=== PATIENT | male | born 1960 | race Two or more races ===

== ENCOUNTER → 2016-08-08 | Outpatient (CLI) | payer BC, OTHER ==
[~2016-08-08] MED LIST: CARV6.2551 OR; LEVO25TA6 OR; METF-312 OR; OLME40TA30 OR
[2016-08-08 09:00] VITALS: BP 155/99
[2016-08-08 10:00] VITALS: BP 149/95
== END | disposition home or self-care (01) ==
LOC: CHF HDHVI 10:39
PROVIDERS: ATTEND Internal Medicine Cardiovascular Disease
DX: C22.9 Malignant neoplasm of liver, not specified as primary or secondary (principal)
CPT/HCPCS: G0463

== ENCOUNTER 2016-10-27 15:51 | Emergency (ER) | payer BC ==
[~2016-10-27] VITALS: Ht 175.3 cm; Wt 113.4 kg
[~2016-10-27 15:51] MED LIST changes: -METF-312 OR; +METF-370 OR
[2016-10-27] MEDS ORDERED: SODIUM CHLORIDE 0.9% 1,000 ML IVB ONE (16:35)
[2016-10-27 16:49] VITALS: BP 122/75
[2016-10-27 17:06] LABS: Basophils # (auto) 0 uL; Basophils % (auto) 0.2 % (0.0-2.0); Eosinophils # (auto) 0 uL; Eosinophils % (auto) 0.7 % (0.0-7.0); Hematocrit 42.4 % (41.0-53.0); Hemoglobin 14.7 g/dL (13.5-17.5); Lymphocytes # (auto) 0.8 uL; Lymphocytes % (auto) 12.4 % (10.0-50.0); Mean Corpuscular Hemoglobin 32.2 pg (28.0-32.0); Mean Corpuscular Hgb Conc. 34.7 g/dL (32.0-36.0); Mean Corpuscular Volume 92.6 fL (80.0-100.0); Mean Platelet Volume 9.8 fL (7.4-10.4); Monocytes # (auto) 0.4 uL; Monocytes % (auto) 6.2 % (0.0-12.0); Neutrophils # (auto) 5.4 uL; Neutrophils % (auto) 80.5 % (37.0-80.0); Platelet Count (auto) 86 10^3/uL (140-450); Red Cell Distribution Width 14.1 % (11.6-16.0); White Blood Cell 6.8 10^3/uL (4.4-10.8)
[2016-10-27 17:22] LABS: INR 1.15 (0.9-1.15); Partial Thromboplastin Time 23.8 sec (22.64-33.71)
[2016-10-27 17:23] LABS: Prothrombin Time 12.6 sec (9.37-12.3)
[2016-10-27 17:36] LABS: Alkaline Phosphatase 79 U/L (45-117); Anion Gap 11 (5-15); Aspartate Aminotransferase 25 U/L (15-37); BUN/Creatinine Ratio 13.7; Bilirubin, Total 1.7 mg/dL (0.2-1.0); Blood Urea Nitrogen 17 mg/dL (7-18); Calcium 9.2 mg/dL (8.5-10.1); Carbon Dioxide 23 mmol/L (21-32); Chloride 109 mmol/L (98-107); GFR African American 77 mL/min; GFR Non-African American 64 mL/min; Glucose 129 mg/dL (74-106); Potassium 3.7 mmol/L (3.5-5.1); Sodium 143 mmol/L (136-145); Total Protein 7.3 g/dL (6.4-8.2)
[2016-10-27 17:53] LABS: Urine Bilirubin Negative (Negative); Urine Blood Negative /uL (Negative); Urine Color Yellow (Yellow); Urine Glucose Normal (Normal); Urine Hyaline Cast MOD /lpf (0 - 2); Urine Ketone Negative (Negative); Urine Mucus FEW (None Seen); Urine Nitrite Negative (Negative); Urine RBC <1 /hpf (0 - 3); Urine Squamous Epithelial Cell FEW /hpf (<5); Urine Urobilinogen Normal (Negative)
[2016-10-27 20:50] LABS: Platelet Estimate Decreased
== END 2016-10-27 18:56 | disposition home or self-care (01) ==
LOC: EDBD 15:51 → ER 15:58
DX: T67.5XXA Heat exhaustion, unspecified, initial encounter (principal); R55 Syncope and collapse; R53.1 Weakness; E11.9 Type 2 diabetes mellitus without complications; E78.5 Hyperlipidemia, unspecified; I10 Essential (primary) hypertension; E07.9 Disorder of thyroid, unspecified; R11.2 Nausea with vomiting, unspecified; R42 Dizziness and giddiness; Z79.899 Other long term (current) drug therapy; X30.XXXA Exposure to excessive natural heat, initial encounter; Y93.89 Activity, other specified; Y92.89 Other specified places as the place of occurrence of the external cause; Y99.8 Other external cause status
CPT/HCPCS: 36415; 71010; 80053; 81001; 82962; 83735; 84484; 85025; 85610; 85730; 93005; 94761; 96360; 99285; J7030

== ENCOUNTER → 2016-12-11 | Outpatient (CLI) | payer BC ==
[2016-12-11 16:40] LABS: Basophils # (auto) 0 uL; Basophils % (auto) 0.8 % (0.0-2.0); CONDITION Y; Eosinophils # (auto) 0.1 uL; Eosinophils % (auto) 2.8 % (0.0-7.0); Hematocrit 42.2 % (41.0-53.0); Hemoglobin 14.4 g/dL (13.5-17.5); Lymphocytes # (auto) 1.2 uL; Lymphocytes % (auto) 38.8 % (10.0-50.0); Mean Corpuscular Hemoglobin 32.4 pg (28.0-32.0); Mean Corpuscular Hgb Conc. 34.1 g/dL (32.0-36.0); Mean Corpuscular Volume 94.9 fL (80.0-100.0); Mean Platelet Volume 10.3 fL (7.4-10.4); Monocytes # (auto) 0.2 uL; Monocytes % (auto) 7.4 % (0.0-12.0); Neutrophils # (auto) 1.5 uL; Neutrophils % (auto) 50.2 % (37.0-80.0); Platelet Count (auto) 90 10^3/uL (140-450); Red Cell Distribution Width 14.8 % (11.6-16.0); White Blood Cell 3.1 10^3/uL (4.4-10.8)
[2016-12-11 16:52] LABS: INR 1.11 (0.9-1.15); Partial Thromboplastin Time 26.6 sec (22.64-33.71); Prothrombin Time 12.1 sec (9.37-12.3)
[2016-12-11 17:05] LABS: BUN/Creatinine Ratio 23.3; Bilirubin, Direct 0.3 mg/dL (0-0.2); Bilirubin, Total 1.2 mg/dL (0.2-1.0); Calcium 9.5 mg/dL (8.5-10.1); Potassium 4.2 mmol/L (3.5-5.1); Total Protein 8.1 g/dL (6.4-8.2)
== END | disposition home or self-care (01) ==
LOC: Rad HDHVI 10:28
PROVIDERS: ATTEND Internal Medicine Cardiovascular Disease
DX: Z01.818 Encounter for other preprocedural examination (principal); I51.7 Cardiomegaly; I10 Essential (primary) hypertension; I70.0 Atherosclerosis of aorta; E11.9 Type 2 diabetes mellitus without complications; E78.00 Pure hypercholesterolemia, unspecified; K74.1 Hepatic sclerosis; E03.9 Hypothyroidism, unspecified; D64.9 Anemia, unspecified; R79.1 Abnormal coagulation profile
CPT/HCPCS: 36415; 71020; 80048; 80061; 80076; 82105; 83036; 84439; 84443; 85025; 85610; 85730; G0463

== ENCOUNTER → 2017-09-01 | Outpatient (CLI) | payer BC ==
[2017-09-01 12:05] LABS: Basophils # (auto) 0 uL; Basophils % (auto) 0.7 % (0.0-2.0); Eosinophils # (auto) 0.1 uL; Eosinophils % (auto) 3.8 % (0.0-7.0); Hematocrit 44.7 % (41.0-53.0); Hemoglobin 15.1 g/dL (13.5-17.5); Lymphocytes # (auto) 1.3 uL; Lymphocytes % (auto) 42.1 % (10.0-50.0); Mean Corpuscular Hemoglobin 32.2 pg (28.0-32.0); Mean Corpuscular Hgb Conc. 33.8 g/dL (32.0-36.0); Mean Corpuscular Volume 95.4 fL (80.0-100.0); Monocytes # (auto) 0.2 uL; Monocytes % (auto) 7.6 % (0.0-12.0); Neutrophils # (auto) 1.4 uL; Neutrophils % (auto) 45.8 % (37.0-80.0); Nucleated Red Blood Cells % 0.2 %; Platelet Count (auto) 80 10^3/uL (140-450); Red Blood Cells 4.69 10^6/uL (4.5-5.90); Red Cell Distribution Width 13.6 % (11.8-14.3)
[2017-09-01 12:09] LABS: Urine Blood Negative /uL (Negative); Urine Specific Gravity 1.031 (1.001-1.035)
[2017-09-01 12:20] LABS: Albumin 4.1 g/dL (3.4-5.0); BUN/Creatinine Ratio 20.4; Bilirubin, Total 1.3 mg/dL (0.2-1.0); Calcium 8.5 mg/dL (8.5-10.1); Potassium 4.1 mmol/L (3.5-5.1); Total Protein 8.2 g/dL (6.4-8.2)
[2017-09-01 12:24] LABS: Free T4 (Free Thyroxine) 1.07 ng/dL (0.89-1.76); Prostate Specific Antigen 0.73 ng/mL (0.0-4.0)
== END | disposition home or self-care (01) ==
LOC: LAB 08:01
PROVIDERS: ATTEND Internal Medicine Cardiovascular Disease
DX: E78.5 Hyperlipidemia, unspecified (principal); D64.9 Anemia, unspecified; I10 Essential (primary) hypertension; E11.9 Type 2 diabetes mellitus without complications; E03.9 Hypothyroidism, unspecified; E55.9 Vitamin D deficiency, unspecified; R97.20 Elevated prostate specific antigen [PSA]; R53.81 Other malaise; D51.9 Vitamin B12 deficiency anemia, unspecified; N39.0 Urinary tract infection, site not specified
CPT/HCPCS: 36415; 80053; 80061; 81003; 82306; 82607; 83036; 84153; 84403; 84439; 84443; 85025

== ENCOUNTER → 2017-09-30 | Outpatient (CLI) | payer BC | END | disposition home or self-care (01) | LOC: Rad HDHVI 09:27 | PROVIDERS: ATTEND Internal Medicine | DX: I70.0 Atherosclerosis of aorta (principal); I10 Essential (primary) hypertension; E11.9 Type 2 diabetes mellitus without complications; E78.5 Hyperlipidemia, unspecified; E03.9 Hypothyroidism, unspecified | CPT/HCPCS: 71046 ==

== ENCOUNTER → 2017-10-31 | Outpatient (CLI) | payer BC ==
[2017-10-31 13:35] VITALS: BP 137/82
[2017-10-31 13:55] VITALS: BP 136/82
[2017-10-31 16:02] LABS: Basophils # (auto) 0 uL; Basophils % (auto) 0.7 % (0.0-2.0); Eosinophils # (auto) 0.1 uL; Eosinophils % (auto) 2.3 % (0.0-7.0); Hematocrit 42.4 % (41.0-53.0); Hemoglobin 14.6 g/dL (13.5-17.5); Lymphocytes # (auto) 1.2 uL; Lymphocytes % (auto) 34.7 % (10.0-50.0); Mean Corpuscular Hemoglobin 33.2 pg (28.0-32.0); Mean Corpuscular Hgb Conc. 34.4 g/dL (32.0-36.0); Mean Corpuscular Volume 96.5 fL (80.0-100.0); Monocytes # (auto) 0.3 uL; Neutrophils # (auto) 1.8 uL; Neutrophils % (auto) 53.3 % (37.0-80.0); Nucleated Red Blood Cells % 0.8 %; Red Blood Cells 4.39 10^6/uL (4.5-5.90); Red Cell Distribution Width 13.7 % (11.8-14.3); White Blood Cell 3.4 10^3/uL (4.4-10.8)
[2017-10-31 16:12] LABS: Albumin 3.6 g/dL (3.4-5.0); Calcium 8.6 mg/dL (8.5-10.1); Potassium 3.7 mmol/L (3.5-5.1)
[2017-10-31 16:27] LABS: Bilirubin, Total 1.3 mg/dL (0.2-1.0); Total Protein 7.2 g/dL (6.4-8.2)
[2017-10-31 16:28] LABS: INR 1.14 (0.9-1.15); Partial Thromboplastin Time 26.8 sec (23.78-33.04); Prothrombin Time 12.1 sec (9.27-12.13)
[2017-10-31 16:37] LABS: Platelet Count (auto) 72 10^3/uL (140-450)
== END | disposition home or self-care (01) ==
LOC: Rad HDHVI 13:07
PROVIDERS: ATTEND Internal Medicine Cardiovascular Disease
DX: Z01.818 Encounter for other preprocedural examination (principal); I10 Essential (primary) hypertension; E11.9 Type 2 diabetes mellitus without complications; E78.5 Hyperlipidemia, unspecified; E03.9 Hypothyroidism, unspecified
CPT/HCPCS: 36415; 80053; 85025; 85610; 85730; 93005; G0463

== ENCOUNTER → 2018-01-20 | Outpatient (CLI) | payer BC ==
[2018-01-20 15:49] LABS: Basophils # (auto) 0 uL; Basophils % (auto) 0.5 % (0.0-2.0); Eosinophils # (auto) 0.1 uL; Eosinophils % (auto) 3.4 % (0.0-7.0); Hematocrit 41.9 % (41.0-53.0); Hemoglobin 14.5 g/dL (13.5-17.5); Lymphocytes # (auto) 1.1 uL; Lymphocytes % (auto) 36.9 % (10.0-50.0); Mean Corpuscular Hemoglobin 32.9 pg (28.0-32.0); Mean Corpuscular Hgb Conc. 34.6 g/dL (32.0-36.0); Mean Corpuscular Volume 94.9 fL (80.0-100.0); Monocytes # (auto) 0.3 uL; Monocytes % (auto) 9.7 % (0.0-12.0); Neutrophils # (auto) 1.5 uL; Neutrophils % (auto) 49.5 % (37.0-80.0); Nucleated Red Blood Cells % 0.6 %; Platelet Count (auto) 67 10^3/uL (140-450); Red Blood Cells 4.41 10^6/uL (4.5-5.90); Red Cell Distribution Width 13.8 % (11.8-14.3); White Blood Cell 3.1 10^3/uL (4.4-10.8)
[2018-01-20 15:54] LABS: Urine Blood Negative /uL (Negative)
[2018-01-20 16:00] LABS: BUN/Creatinine Ratio 15.7; Calcium 8.8 mg/dL (8.5-10.1); Potassium 3.8 mmol/L (3.5-5.1)
== END | disposition home or self-care (01) ==
LOC: LAB 12:14
PROVIDERS: ATTEND Internal Medicine
DX: K57.30 Diverticulosis of large intestine without perforation or abscess without bleeding (principal); K80.20 Calculus of gallbladder without cholecystitis without obstruction; K44.9 Diaphragmatic hernia without obstruction or gangrene; K74.60 Unspecified cirrhosis of liver; N39.0 Urinary tract infection, site not specified; K82.8 Other specified diseases of gallbladder; I10 Essential (primary) hypertension; R74.8 Abnormal levels of other serum enzymes; D64.9 Anemia, unspecified; R16.1 Splenomegaly, not elsewhere classified
CPT/HCPCS: 36415; 74176; 80048; 81003; 82150; 83690; 85025; 87086

== ENCOUNTER → 2018-11-17 | Outpatient (CLI) | payer BC ==
[~2018-11-17] VITALS: Ht 175.3 cm; Wt 109.3 kg
[~2018-11-17] MED LIST changes: +ADENOSINE 90 MG/30 ML INJ IV ONE; -OLME40TA30 OR; +OLME40TA9 OR
== END | disposition home or self-care (01) ==
LOC: Rad HDHVI 09:29
PROVIDERS: ATTEND Internal Medicine Cardiovascular Disease
DX: I20.9 Angina pectoris, unspecified (principal); R42 Dizziness and giddiness; B18.2 Chronic viral hepatitis C; I10 Essential (primary) hypertension; Z94.4 Liver transplant status
CPT/HCPCS: 78452; 93005; 96374; 96375; A9500; J0153

== ENCOUNTER → 2018-12-30 | Outpatient (CLI) | payer BC ==
[~2018-12-30] MED LIST changes: -ADENOSINE 90 MG/30 ML INJ IV ONE
[2018-12-31 12:39] LABS: Urine Blood Negative /uL (Negative); Urine Specific Gravity 1.029 (1.001-1.035)
== END | disposition home or self-care (01) ==
LOC: LAB 15:52
PROVIDERS: ATTEND Internal Medicine
DX: N39.0 Urinary tract infection, site not specified (principal)
CPT/HCPCS: 81003

== ENCOUNTER → 2019-02-05 | Outpatient (CLI) | payer BC ==
[~2019-02-05] VITALS: Ht 30.5 cm; Wt 104.3 kg
[~2019-02-05] MED LIST changes: +CYANOCOBALAMIN (B-12) 1000 MCG/1 ML VIAL IM ONE; +CYANOCOBALAMIN (B-12) 1000 MCG/1 ML VIAL ONE; +FUROSEMIDE 40 MG/4 ML VIAL IV ONE; +FUROSEMIDE 40 MG/4 ML VIAL ONE; +MAGNESIUM OXIDE 400 MG TAB ONE; +POTASSIUM CHL 10 Meq TABLET PO ONE
[2019-02-05 12:46] VITALS: BP 149/84
--- NOTE | 2019-02-05 12:50 | NUR ---
PATIENT CAME IN S/P HOSPITALIZATION, PATIENT DC'D FROM [facility] YESTERDAY. PATIENT STATES HE IS TIRED AND HIS LEGS AND FEET ARE SWOLLEN. IV STARTED IN LW 22G, BLOOD DRAWN AT TIME OF IV START AND SENT TO LAB STAT.
--- NOTE | 2019-02-05 13:30 | NUR ---
PATIENT EDUCATED ON LOW SODIUM DIET AND THE IMPORTANCE OF WATCHING SALT INTAKE. WRITTEN INFORMATION ON 2GM SODIUM DIET AND CONDIMENTS WITH HIGH SODIUM CONTENTS GIVEN TO PATIENT. PATIENT VERBALIZED UNDERSTANDING.
[2019-02-05 13:38] LABS: Basophils # (auto) 0.1 uL; Basophils % (auto) 0.5 % (0.0-2.0); Eosinophils # (auto) 0.1 uL; Eosinophils % (auto) 0.6 % (0.0-7.0); Hematocrit 34.3 % (41.0-53.0); Hemoglobin 11.7 g/dL (13.5-17.5); Lymphocytes # (auto) 1.2 uL; Lymphocytes % (auto) 9.8 % (10.0-50.0); Mean Corpuscular Hemoglobin 33.2 pg (28.0-32.0); Mean Corpuscular Hgb Conc. 34.3 g/dL (32.0-36.0); Monocytes # (auto) 0.7 uL; Monocytes % (auto) 5.9 % (0.0-12.0); Neutrophils % (auto) 83.2 % (37.0-80.0); Platelet Count (auto) 246 10^3/uL (140-450); Red Blood Cells 3.53 10^6/uL (4.5-5.90); Red Cell Distribution Width 13.2 % (11.8-14.3)
[2019-02-05 14:24] LABS: Anion Gap 8 (5-15); BUN/Creatinine Ratio 20.5; Blood Urea Nitrogen 15 mg/dL (7-18); Carbon Dioxide 23 mmol/L (21-32); Chloride 106 mmol/L (98-107); GFR African American 141 mL/min; GFR Non-African American 117 mL/min; Glucose 235 mg/dL (74-106); Potassium 3.7 mmol/L (3.5-5.1); Sodium 137 mmol/L (136-145)
[2019-02-05 14:25] LABS: Alanine Aminotransferase 113 U/L (16-61); Albumin 2.3 g/dL (3.4-5.0); Alkaline Phosphatase 138 U/L (45-117); Aspartate Aminotransferase 66 U/L (15-37); Bilirubin, Total 0.9 mg/dL (0.2-1.0); Calcium 7.8 mg/dL (8.5-10.1)
[2019-02-05 14:26] LABS: Magnesium 1.8 mg/dL (1.6-2.6)
[2019-02-05] MEDS: MAGNESIUM OXIDE 400 MG TAB PO ONE ×2 (14:40→14:45)
[2019-02-05 14:50] VITALS: BP 165/89
--- NOTE | 2019-02-05 14:50 | NUR ---
[facility] Discharge Instructions See e-MAR for any mediations given with this visit. Patient education given on disease process. Patient verbalized understanding. Previous labs reviewed. Patient discharged in stable condition with after care instructions and follow up appointment. NOTE LASIX IVP ADMIN BY [facility]IXA VO B12 IM R DELTOID ADMIN BY AIXA VO POTASSIUM PO AND MAG-OX PO ADMIN BY AIXA VO
== END | disposition home or self-care (01) ==
LOC: CHF HDHVI 12:52
PROVIDERS: ATTEND Internal Medicine Cardiovascular Disease
DX: I50.23 Acute on chronic systolic (congestive) heart failure (principal); D64.9 Anemia, unspecified; E83.40 Disorders of magnesium metabolism, unspecified; R60.9 Edema, unspecified; R53.83 Other fatigue; E83.42 Hypomagnesemia
CPT/HCPCS: 36415; 80053; 83735; 83880; 85025; 96372; 96374; G0463; J1940; J3420

== ENCOUNTER 2023-01-30 19:31 | Emergency (ER) | payer BC ==
[~2023-01-30] VITALS: Ht 175.3 cm; Wt 104.4 kg
[~2023-01-30 19:31] MED LIST changes: -CYANOCOBALAMIN (B-12) 1000 MCG/1 ML VIAL IM ONE; -CYANOCOBALAMIN (B-12) 1000 MCG/1 ML VIAL ONE; -FUROSEMIDE 40 MG/4 ML VIAL IV ONE; -FUROSEMIDE 40 MG/4 ML VIAL ONE; -MAGNESIUM OXIDE 400 MG TAB ONE; -POTASSIUM CHL 10 Meq TABLET PO ONE
[2023-01-30 21:56] LABS: Alanine Aminotransferase 25 U/L (7-40); Albumin 4.3 g/dL (3.2-4.8); Alkaline Phosphatase 69 U/L (46-116); Anion Gap 6.6 (5-15); Aspartate Aminotransferase 17 U/L (13-40); BUN/Creatinine Ratio 16.3 (10.0-20.0); Blood Urea Nitrogen 17 mg/dL (9-23); Calcium 9.6 mg/dL (8.7-10.4); Carbon Dioxide 24.4 mmol/L (20-30); Chloride 107 mmol/L (98-107); Glucose 174 mg/dL (74-106); Potassium 4.3 mmol/L (3.5-5.1); Sodium 138 mmol/L (136-145)
[2023-01-30 21:57] LABS: Bilirubin, Total 0.4 mg/dL (0.2-1.0); Total Protein 6.8 g/dL (5.7-8.2)
[2023-01-30 21:59] LABS: Basophils # (auto) 0 10 ^3/uL (0-0.2); Basophils % (auto) 0.5 % (0.0-2.0); Eosinophils # (auto) 0.1 10 ^3/uL (0-0.8); Eosinophils % (auto) 1.4 % (0.0-7.0); Hematocrit 39.5 % (41.0-53.0); Hemoglobin 13.5 g/dL (13.5-17.5); Lymphocytes # (auto) 2.8 10 ^3/uL (0.4-5.4); Lymphocytes % (auto) 37.1 % (10.0-50.0); Mean Corpuscular Hemoglobin 32.1 pg (28.0-32.0); Mean Corpuscular Hgb Conc. 34.2 g/dL (32.0-36.0); Mean Corpuscular Volume 93.7 fL (80.0-100.0); Monocytes # (auto) 0.4 10 ^3/uL (0-1.3); Monocytes % (auto) 5.6 % (0.0-12.0); Neutrophils # (auto) 4.2 10 ^3/uL (1.6-8.6); Neutrophils % (auto) 55.4 % (37.0-80.0); Nucleated Red Blood Cells % 0.1 %; Red Blood Cells 4.22 10^6/uL (4.5-5.90); Red Cell Distribution Width 12.7 % (11.8-14.3); White Blood Cell 7.5 10^3/uL (4.4-10.8)
[2023-01-30 22:27] LABS: INR 1.09 (0.9-1.15); Partial Thromboplastin Time 26.2 SEC (24.5-34.5); Prothrombin Time 11.4 sec (9.3-11.8)
[2023-01-30 22:36] VITALS: BP 130/74; PULSE 61; RESP 18; TEMP 98.1; O2SAT 98
== END 2023-01-30 22:37 | disposition home or self-care (01) ==
LOC: ER 19:35
DX: R25.2 Cramp and spasm (principal); E78.5 Hyperlipidemia, unspecified; F41.9 Anxiety disorder, unspecified; Z86.718 Personal history of other venous thrombosis and embolism
CPT/HCPCS: 36415; 71045; 80053; 83735; 83880; 84484; 85025; 85610; 85730; 93971

== ENCOUNTER 2024-07-28 13:31 | Inpatient (IN) | payer BC, MEDICARE ==
[~2024-07-28] VITALS: Ht 172.7 cm; Wt 113.0 kg
--- NOTE | 2024-07-28 13:44 | ED.PDOC ---
History of Present Illness HPI Comments 63-year-old male presents with a chief complaint of generalized weakness and right-sided numbness. Patient reports that he has been feeling weak and also numb in his arm and face on the right side since Friday. Patient denies any difficulty speaking, walking, or extremity strength. Patient was given 1 bolus by EMS and had a blood sugar reading of 352 per EMS. No other symptoms or modifying factors present at this time. Chief Complaint: General Weakness Time Seen by MD: 13:26 Reviewed Notes: Medications, Allergies Allergies: Coded Allergies: NO KNOWN ALLERGIES (Unverified , 03/02/12) Home Meds Reported Medications Carvedilol (Carvedilol) 6.25 Mg Tab, 6.25 MG OR BID 03/02/12 Olmesartan Medoxomil-Hydrochlo (Benicar Hct) 1 Tab Tab, 1 TAB OR DAILY 03/02/12 Levothyroxine Sodium (Levothyroxine Sodium) 25 Mcg Tab, 25 MCG OR DAILY 03/02/12 Metformin Hydrochloride (Metformin Hcl) 500 Mg Tab, 500 MG OR BID 03/02/12 Information Source: Patient, Emergency Med Personnel Mode of Arrival: EMS Severity: Moderate Timing: Days Duration: Since onset Prehospital treatment: Accucheck, IVF Past Medical History PAST MEDICAL HISTORY: Cancer, DM, High Lipids, HTN, Liver, Thyroid Surgical History: Hernia Repair Social History Smoker: Non-Smoker Alcohol: Denies ETOH Use Drugs: Denies Drug Use Lives In: Home Constitutional: reports: weakness; denies: chills, diaphoresis, fatigue, fever, malaise, sweats, others EENTM: denies: blurred vision, double vision, ear bleeding, ear discharge, ear drainage, ear pain, ear ringing, eye pain, eye redness, hearing loss, mouth pain, mouth swelling, nasal discharge, nose bleeding, nose congestion, nose pain, photophobia, tearing, throat pain, throat swelling, voice changes, others Respiratory: denies: cough, hemoptysis, orthopnea, SOB at rest, shortness of breath, SOB with excertion, stridor, wheezing, others Cardiovascular: denies: chest pain, dizzy spells, diaphoresis, Dyspnea on exertion, edema, irregular heart beat, left arm pain, lightheadedness, palpitations, PND, syncope, others Gastrointestinal: denies: abdomen distended, abdominal pain, blood streaked bowels, constipated, diarrhea, dysphagia, difficulty swallowing, hematemesis, melena, nausea, poor appetite, poor fluid intake, rectal bleeding, rectal pain, vomiting, others Genitourinary: denies: burning, dysuria, flank pain, frequency, hematuria, incontinence, penile discharge, penile sore, pain, testicle pain, testicle swelling, urgency, others Neurological: reports: right sided numbness; denies: dizziness, fainting, headache, left sided numbness, left sided weakness, numbness, paresthesia, pre- existing deficit, right sided weakness, seizure, speech problems, tingling, tremors, weakness, others Musculoskeletal: denies: back pain, gout, joint pain, joint swelling, muscle pain, muscle stiffness, neck pain, others Integumetry: denies: bruises, change in color, change in hair/nails, dryness, laceration, lesions, lumps, rash, wounds, others Allergic/Immunocompromised: denies: Difficulty Healing, Frequent Infections, Hives, Itching, others Hematologic/Lymphatic: denies: anemia, blood clots, easy bleeding, easy bruising, swollen glands, others Endocrine: denies: excessive hunger, excessive sweating, excessive thirst, excessive urination, flushing, intolerance to cold, intolerance to heat, unexplained weight gain, unexplained weight loss, others Psychiatric: denies: anxiety, bipolar disorder, depression, hopeless, panic disorder, schizophrenia, sleepless, suicidal, others All Other Systems: Reviewed and Negative Physical Exam General Appearance: Moderate Distress HEENT: Normal ENT Inspection, Pharynx Normal, TMs Normal Neck: Full Range of Motion, Non-Tender, Normal, Normal Inspection Respiratory: Chest Non-Tender, Lungs Clear, No Accessory Muscle Use, No Respiratory Distress, Normal Breath Sounds Cardiovascular: Bradycardia, No Edema, No JVD, No Murmur, No Gallop Breast Exam: Deferred Gastrointestinal: No Organomegaly, Non Tender, No Pulsatile Mass, Normal Bowel Sounds, Soft Genitalia: Deferred Pelvic: Deferred Rectal: Deferred Extremities: No calf tenderness, Normal capillary refill, Normal inspection, Normal range of motion, Non-tender, No pedal edema Musculoskeletal : Apperance: Normal Neurologic: 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 Was a procedure done?: No EKG EKG : Pulse Rate (adult): 56 [place]: Normal Cardiac Rhythm: NSR Block: None Hypertrophy: None ST: Normal Differential Dx Considerations may include: Generalized weakness, dehydration, sepsis X-Ray, Labs, Meds, VS Vital Signs Date Time Temp Pulse Resp B/P (MAP) Pulse Ox O2 Delivery O2 Flow Rate FiO2 07/28/24 13:43 56 07/28/24 13:39 97.7 55 14 140/81 (100) 96 Lab Test 07/28/24 14:11 Range/Units White Blood Count 4.9 4.4-10.8 10^3/uL Red Blood Count 4.34 L 4.5-5.90 10^6/uL Hemoglobin 13.8 13.5-17.5 g/dL Hematocrit 39.8 L 41.0-53.0 % Mean Corpuscular Volume 91.7 80.0-100.0 fL Mean Corpuscular Hemoglobin 31.9 28.0-32.0 pg Mean Corpuscular Hemoglobin Concent 34.8 32.0-36.0 g/dL Red Cell Distribution Width 12.8 11.8-14.3 % Platelet Count 114 L 140-450 10^3/uL Mean Platelet Volume 9.1 6.9-10.8 fL Neutrophils (%) (Auto) 51.9 37.0-80.0 % Lymphocytes (%) (Auto) 38.4 10.0-50.0 % Monocytes (%) (Auto) 7.3 0.0-12.0 % Eosinophils (%) (Auto) 1.6 0.0-7.0 % Basophils (%) (Auto) 0.8 0.0-2.0 % Neutrophils # (Auto) 2.6 1.6-8.6 10 ^3/uL Lymphocytes # (Auto) 1.9 0.4-5.4 10 ^3/uL Monocytes # (Auto) 0.4 0-1.3 10 ^3/uL Eosinophils # (Auto) 0.1 0-0.8 10 ^3/uL Basophils # (Auto) 0 0-0.2 10 ^3/uL Nucleated Red Blood Cells 0.1 % Prothrombin Time 11.1 9.3-11.8 sec Prothrombin Time INR 1.05 0.9-1.15 Activated Partial Thromboplast Time 25.5 24.5-34.5 SEC Sodium Level 137 136-145 mmol/L Potassium Level 4.5 3.5-5.1 mmol/L Chloride Level 104 98-107 mmol/L Carbon Dioxide Level 28 20-31 mmol/L Anion Gap 5 5-15 Blood Urea Nitrogen 27 H 9-23 mg/dL Creatinine 1.03 0.700-1.30 mg/dL Glomerular Filtration Rate Calc 81 >90 mL/min BUN/Creatinine Ratio 26.2 H 10.0-20.0 Serum Glucose 283 H 74-106 mg/dL Calcium Level 10.0 8.7-10.4 mg/dL Troponin I High Sensitivity 6 </=54 ng/L The patient's CBC is within normal limits The chemistry panel is within normal limits The patient was glucose is elevated at 283 The troponin level is negative The chest x-ray shows: IMPRESSION: The chest x-ray shows increased pulmonary vascular congestion HS:Y The CT scan of the head is negative The patient was being admitted at this time The patient will be evaluated by the hospitalist Images Reviewed?: Images reviewed and evaluated by me Time of 1ST Reevaluation: 13:56 Reevaluation 1ST: Unchanged Patient Education/Counseling: Diagnosis, Treatment, Prognosis Family Education/Counseling: Diagnosis, Treatment, Prognosis Departure 1 Departure Time of Disposition: 16:27 Impression: Primary Impression: Generalized weakness Additional Impressions: Pulmonary vascular congestion Symptomatic bradycardia Disposition: ADMITTED INPATIENT Admit to: Tele Condition: Fair Critical Care Note Critical Care Time?: No Stability Stability form required: Yes Unstable for transfer: Telemetry monitoring (Telemetry monitoring required), ED Physician Assesment (Clinical assesment) Heart Score Heart Score: Heart Score Response (Comments) Value History Moderate Suspicious 1 EKG Normal 0 Age 45-64 1 Risk Factors >3 or Hx ASHD 2 Troponin Normal limit 0 Total 4 I personally scribed for MICAELA VINCENT MD ([email or web address]) on 07/28/24 at 13:43. Electronically submitted by Jeovany Cooper ([email or web address]). MICAELA VINCENT MD Jul 28, 2024 13:43
--- NOTE | 2024-07-28 14:19 | DVH ---
CHEST RADIOGRAPH Indication: cp Technique: Single frontal view of the chest was obtained Comparison: XY CHEST PORTABLE on DOS: 01/30/23 FINDINGS: Lines and Tubes: None Lungs: No focal consolidation. Interstitial prominence Pleura: No effusion. No pneumothorax. Cardiomediastinal contours: Mild cardiomegaly Bones: No acute osseous abnormality. IMPRESSION: Mild pulmonary vascular congestion.
[2024-07-28 14:26] LABS: Basophils # (auto) 0 10 ^3/uL (0-0.2); Basophils % (auto) 0.8 % (0.0-2.0); Eosinophils # (auto) 0.1 10 ^3/uL (0-0.8); Eosinophils % (auto) 1.6 % (0.0-7.0); Hematocrit 39.8 % (41.0-53.0); Hemoglobin 13.8 g/dL (13.5-17.5); Lymphocytes # (auto) 1.9 10 ^3/uL (0.4-5.4); Lymphocytes % (auto) 38.4 % (10.0-50.0); Mean Corpuscular Hemoglobin 31.9 pg (28.0-32.0); Mean Corpuscular Hgb Conc. 34.8 g/dL (32.0-36.0); Mean Corpuscular Volume 91.7 fL (80.0-100.0); Monocytes # (auto) 0.4 10 ^3/uL (0-1.3); Monocytes % (auto) 7.3 % (0.0-12.0); Neutrophils # (auto) 2.6 10 ^3/uL (1.6-8.6); Neutrophils % (auto) 51.9 % (37.0-80.0); Nucleated Red Blood Cells % 0.1 %; Platelet Count (auto) 114 10^3/uL (140-450); Red Blood Cells 4.34 10^6/uL (4.5-5.90); Red Cell Distribution Width 12.8 % (11.8-14.3); White Blood Cell 4.9 10^3/uL (4.4-10.8)
--- NOTE | 2024-07-28 14:26 | DVH ---
EXAM: CT HEAD WITHOUT CONTRAST HISTORY: right arm numbness COMPARISON: None TECHNIQUE: Axial images of the head were obtained and reformatted in coronal and sagittal planes. All CT scans at this medical facility are performed using dose modulation techniques as appropriate t o a performed exam including the following: Automated exposure control was utilized; adjustment of th e MA and/or KV according to patient size; and use of iterative reconstruction technique. CT Dose: CTDI volume is 60 mGy. Dose-length product is 1198 mGy*cm FINDINGS: There is no evidence of acute intracranial hemorrhage, mass, mass effect midline shift. There is no h ydrocephalus or extra-axial fluid collection. There are mild chronic small-vessel ischemic changes i n the supratentorial white matter. Quiroz-white matter differentiation is maintained. The visualized paranasal sinuses and mastoid air cells are clear. The calvarium is intact. IMPRESSION: 1. No acute intracranial process. HS:Y
[2024-07-28 14:40] LABS: Chloride 104 mmol/L (98-107); Potassium 4.5 mmol/L (3.5-5.1); Sodium 137 mmol/L (136-145)
[2024-07-28 14:41] LABS: Anion Gap 5 (5-15); Carbon Dioxide 28 mmol/L (20-31); INR 1.05 (0.9-1.15); Partial Thromboplastin Time 25.5 SEC (24.5-34.5); Prothrombin Time 11.1 sec (9.3-11.8)
[2024-07-28 14:46] LABS: BUN/Creatinine Ratio 26.2 (10.0-20.0)
[2024-07-28 14:52] LABS: Blood Urea Nitrogen 27 mg/dL (9-23); Glucose 283 mg/dL (74-106)
[2024-07-28] MEDS ORDERED: MORPHINE SULFATE INJ 2 MG/ml SYRG IV PRN (22:00)
[2024-07-28] MEDS ORDERED: ACETAMINOPHEN 325 MG TAB PO PRN (22:00)
[2024-07-28 22:36] LABS: Alanine Aminotransferase 30 U/L (7-40); Albumin 4.4 g/dL (3.2-4.8); Alkaline Phosphatase 88 U/L (46-116); Anion Gap 6 (5-15); Aspartate Aminotransferase 21 U/L (13-40); BUN/Creatinine Ratio 19.5 (10.0-20.0); Blood Urea Nitrogen 22 mg/dL (9-23); Calcium 9.9 mg/dL (8.7-10.4); Carbon Dioxide 26 mmol/L (20-31); Chloride 106 mmol/L (98-107); Potassium 4.4 mmol/L (3.5-5.1); Sodium 138 mmol/L (136-145); Total Protein 6.9 g/dL (5.7-8.2)
[2024-07-28 22:37] LABS: Bilirubin, Total 0.5 mg/dL (0.2-1.0); INR 1.04 (0.9-1.15); Partial Thromboplastin Time 25.7 SEC (24.5-34.5)
[2024-07-28 22:40] LABS: Blood Alcohol < 3.0 mg/dL (<10); Glucose 376 mg/dL (74-106)
[2024-07-28 22:41] LABS: Lactic Acid w/Reflex 2.2 mmol/L (0.4-2.0)
[2024-07-28] MEDS ORDERED: DEXTROSE (50%) 50ML SYRG IV PRN (22:45)
[2024-07-28 22:50] LABS: Free T4 (Free Thyroxine) 1.16 ng/dL (0.89-1.76)
[2024-07-28 23:25] LABS: T3 Total 0.93 ng/mL (0.60-1.81)
[2024-07-28 23:34] LABS: Urine Bacteria None Seen /hpf (None Seen)
[2024-07-28] MEDS: SODIUM CHLOR 0.9% PF (SALINE LOCK) 10ML VIAL/SYR IV SCH (23:41)
[2024-07-28] MEDS: CARVEDILOL 12.5 MG TAB PO SCH (23:41)
[2024-07-28] MEDS: SODIUM CHLORIDE 0.9% 1,000 ML IV ONE (23:48)
[2024-07-28] MEDS: IOHEXOL 350 MG/ML 100ML IJ ONE (23:48)
[2024-07-28 23:56] LABS: Rapid Influenza A Negative (Negative); Rapid Influenza B Negative (Negative)
[2024-07-28 23:56] LABS: COVID19 ANTIGEN SOFIA FIA NEGATIVE (NEGATIVE)
--- NOTE | 2024-07-28 23:58 | ECG ---
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
[2024-07-29] VITALS (8 sets, daily range): BP systolic 139–160; BP diastolic 60–89; PULSE 51–60; RESP 15–18; TEMP 97.3–98; O2SAT 95–97
[2024-07-29] MEDS: InsuLIN REG 1unit/0.01ml Soln (100units/ml) SC SCH ×2 (00:08→21:58)
[2024-07-29 00:09] LABS: Amphetamine Screen, Urine Neg (NEGATIVE); Barbiturate Scree,Urine Neg (NEGATIVE); Benzodiazephine Screen, Urine Neg (NEGATIVE); Cannabinoid Screen, Urine Neg (NEGATIVE); Cocaine Screen, Urine Neg (NEGATIVE); Opiate Scree,Urine Neg (NEGATIVE); Phencyclidine Screen, Urine Neg (NEGATIVE)
[2024-07-29 00:11] LABS: LDL Cholesterol 81 mg/dL (< 100)
[2024-07-29 00:12] LABS: Cholesterol 146 mg/dL (< 200); HDL Cholesterol 42 mg/dL (40-59)
--- NOTE | 2024-07-29 00:16 | DVHHPRES ---
History of Present Illness Resident Creating Document: JERAD BREWER RESIDENT History of Present Illness Ravinder Portillo is a 63-year-old male with a PMH of HCV, liver cancer s/p transplant, type 2 DM, HLD, HTN, hypothyroidism presented to the ED with the chief complaints of right-sided numbness since Friday. Patient reported on Friday evening after work patient started having right-sided numbness like pins and needles sensation in right side of his face, upper and lower extremities which is mild initially but worsened as this progresses and affecting no hold right hand and right side of body. Patient also reported he has been having fatigue for past 2 weeks, intermittent shortness of breath and lightheadedness with light activity and admitted stress at work but denies weakness. On my assessment patient denies headache, chest pain, diarrhea, fall, head trauma, nausea, vomiting, abdominal pain, recent sick contacts and other associated symptoms. PMH: HCV f/b liver cancer s/p transplant 2015, type 2 DM (always more than 200), HLD, HTN, hypothyroidism PSH: Liver transplant in 2016, elbow repair, hernia repair Family history: Multiple TIA in father and lower cancer due to hepatitis-C in brother Personal history: Lives with family. Occasional alcohol use but denies smoking, and other drug abuse Home medications: Carvedilol 12.5 mg, levothyroxine 0.05 mg, benazepril 40 mg, rosuvastatin 10 mg, tacrolimus 1 mg, glyburide 5 mg, magnesium 483 mg Allergies: No known allergies Review of Systems Constitutional: No: Fever, Chills, Sweats, Weakness, Malaise, Other Eyes: No: Pain, Vision change, Conjunctivae inflammation, Eyelid inflammation, Other, Redness ENT: No: Ear pain, Ear discharge, Nose pain, Nose discharge, Nose congestion, Mouth pain, Mouth swelling, Throat pain, Throat swelling, Other Respiratory: No: Cough, Dry, Shortness of breath, SOB with excertion, Wheezing, Hemoptysis, Pleuritic Pain, Sputum, Wheezing, Other Cardiovascular: No: Chest Pain, Palpitations, Orthopnea, Paroxysmal Noc. Dyspnea, Edema, Lt Headedness, Other Gastrointestinal: No: Nausea, Vomiting, Abdominal Pain, Diarrhea, Constipation, Melena, Hematochezia, Other Genitourinary: No Dysuria, No Frequency, No Incontinence, No Hematuria, No Retention, No Other Musculoskeletal: No: other, neck pain, shoulder pain, arm pain, back pain, hand pain, leg pain, foot pain Skin: No: Rash, Lesions, Jaundice, Bruising, Other Neurological: Numbness (Right-sided body) Allergies: Coded Allergies: NO KNOWN ALLERGIES (Unverified , 03/02/12) Medications Current Medications Medications Dose Ordered Sig/Nilesh Route Start Time Stop Time Status Last Admin Dose Admin Sodium Chloride 10 ml Q8HR IV 07/28/24 22:00 07/28/24 23:41 10 ML Sodium Chloride 1,000 ml @ 60 mls/hr [id number] IV 07/28/24 22:00 Acetaminophen 650 mg Q6HP PRN PO 07/28/24 22:00 Morphine Sulfate 2 mg Q4HPRN PRN IV 07/28/24 22:00 Carvedilol 12.5 mg Q12HR PO 07/28/24 22:45 Levothyroxine Sodium 50 mcg QAM@0600 PO 07/29/24 06:00 Benazepril HCl 40 mg DAILY PO 07/29/24 10:00 Patient Own Medication 1 TID PO 07/29/24 06:00 UNV Diagnostic Test (Pha) 1 strip ACHS 07/29/24 07:00 Insulin Human Regular HS SC 07/29/24 22:00 Insulin Human Regular AC SC 07/28/24 22:45 07/29/24 00:08 9 UNITS Dextrose 50 ml UD PRN IV 07/28/24 22:45 Aspirin 81 mg DAILY PO 07/29/24 10:00 Clopidogrel Bisulfate 75 mg DAILY PO 07/29/24 10:00 Exam Vital Signs Vital Signs Date Time Temp Pulse Resp B/P (MAP) Pulse Ox O2 Delivery O2 Flow Rate FiO2 07/28/24 23:56 53 07/28/24 23:26 97.7 14 136/76 (96) 96 97.7 Exam General Appearance: Alert, Oriented X3, Cooperative, Not in acute distress HEENT: Atraumatic, Mucous membranes moist/pink Respiratory: Clear to auscultation, Normal air movement, No added sounds Cardiovascular: Regular rate, Normal S1, Normal S2, No murmurs Abdominal: Active bowel sounds, Soft, no distention, no tenderness Extremities: No edema, Normal pulses, No tenderness/swelling Skin: No Significant rash, except past surgical scars Neuro: Normal speech, sensory deficits on the right side of body and face decreased pain perception on right side but no motor deficits. Psych/Mental Status: Mental status NL, Mood NL Nurse was there as sharperone during examination Labs/Xrays Labs Test 07/28/24 23:33 07/28/24 23:25 07/28/24 23:24 07/28/24 22:03 Range/Units Urine Opiates Screen Neg NEGATIVE Urine Fentanyl Screen Neg NEGATIVE Urine Barbiturates Screen Neg NEGATIVE Urine Phencyclidine Screen Neg NEGATIVE Urine Amphetamines Screen Neg NEGATIVE Urine Benzodiazepines Screen Neg NEGATIVE Urine Cocaine Screen Neg NEGATIVE Urine Cannabinoids Screen Neg NEGATIVE Influenza Type A Antigen Negative Negative Influenza Type B Antigen Negative Negative SARS-CoV-2 Antigen (Rapid) Negative NEGATIVE Prothrombin Time 11.0 9.3-11.8 sec Prothrombin Time INR 1.04 0.9-1.15 Activated Partial Thromboplast Time 25.7 24.5-34.5 SEC D-Dimer, Quantitative 0.58 H 0.0-0.49 mg/L FEU Sodium Level 138 136-145 mmol/L Potassium Level 4.4 3.5-5.1 mmol/L Chloride Level 106 98-107 mmol/L Carbon Dioxide Level 26 20-31 mmol/L Anion Gap 6 5-15 Blood Urea Nitrogen 22 9-23 mg/dL Creatinine 1.13 0.700-1.30 mg/dL Glomerular Filtration Rate Calc 73 >90 mL/min BUN/Creatinine Ratio 19.5 10.0-20.0 Serum Glucose 376 H 74-106 mg/dL Hemoglobin A1c 10.3 H <5.7 % A1C Lactic Acid Level 2.2 *H 0.4-2.0 mmol/L Calcium Level 9.9 8.7-10.4 mg/dL Magnesium Level 2.0 1.6-2.6 mg/dL Total Bilirubin 0.5 0.2-1.0 mg/dL Aspartate Amino Transferase (AST) 21 13-40 U/L Alanine Aminotransferase (ALT) 30 7-40 U/L Alkaline Phosphatase 88 46-116 U/L B-Type Natriuretic Peptide 19.50 0-100 pg/mL Total Protein 6.9 5.7-8.2 g/dL Albumin 4.4 3.2-4.8 g/dL Thyroid Stimulating Hormone (TSH) 1.48 0.55-4.78 uIU/mL Free Thyroxine (T4) Calculated 1.16 0.89-1.76 ng/dL Total Triiodothyronine (TT3) 0.93 0.60-1.81 ng/mL Plasma/Serum Blood Alcohol < 3.0 <10 mg/dL Test 07/28/24 14:11 Range/Units White Blood Count 4.9 4.4-10.8 10^3/uL Red Blood Count 4.34 L 4.5-5.90 10^6/uL Hemoglobin 13.8 13.5-17.5 g/dL Hematocrit 39.8 L 41.0-53.0 % Mean Corpuscular Volume 91.7 80.0-100.0 fL Mean Corpuscular Hemoglobin 31.9 28.0-32.0 pg Mean Corpuscular Hemoglobin Concent 34.8 32.0-36.0 g/dL Red Cell Distribution Width 12.8 11.8-14.3 % Platelet Count 114 L 140-450 10^3/uL Mean Platelet Volume 9.1 6.9-10.8 fL Neutrophils (%) (Auto) 51.9 37.0-80.0 % Lymphocytes (%) (Auto) 38.4 10.0-50.0 % Monocytes (%) (Auto) 7.3 0.0-12.0 % Eosinophils (%) (Auto) 1.6 0.0-7.0 % Basophils (%) (Auto) 0.8 0.0-2.0 % Neutrophils # (Auto) 2.6 1.6-8.6 10 ^3/uL Lymphocytes # (Auto) 1.9 0.4-5.4 10 ^3/uL Monocytes # (Auto) 0.4 0-1.3 10 ^3/uL Eosinophils # (Auto) 0.1 0-0.8 10 ^3/uL Basophils # (Auto) 0 0-0.2 10 ^3/uL Nucleated Red Blood Cells 0.1 % Troponin I High Sensitivity 6 </=54 ng/L Assessment/Plan Assessment/Plan # Rule out acute CVA # Right-sided paresthesia -head CT showed no acute changes -ABCD2 score 5 -consulted neurology -ordered CT angio neck and MRI brain -aspirin & clopidogrel loading dose followed by maintenance dose # uncontrolled HTN -continuously monitor -resume home meds -consulted Dr. Orellana # uncontrolled type 2 DM -pending HbA1c -Accu-Cheks and ISS # hypothyroidism -levothyroxine 50 mcg # thrombocytopenia -monitor lab for now Protonix SCDs for now Cardiac diet Goals of care discussed with the patient for more than 27 minutes: Full code status Case discussed with Dr. Castro, patient and RN Plan discussed with: Patient My Orders Orders - JERAD BREWER RESIDENT Procedure Category Date Status Time Admit ADMIT 07/28/24 Transmitted 21:49 Allergies ANGELICA 07/28/24 In Process 21:49 Code Status CODE 07/28/24 Transmitted 21:49 Sodium Chloride Lock PHA 07/28/24 In Process (Saline Lock Ns) 22:00 Sodium Chloride 0.9% PHA 07/28/24 In Process 22:00 Complete Blood Count LAB 07/29/24 Logged 04:00 Comprehensive LAB 07/29/24 Logged Metabolic Panel 04:00 Cardiac DIET 07/29/24 Transmitted Diet-2gna,Lofat,Lochol Breakfast Condition: Stable ANGELICA 07/28/24 In Process 21:49 Acetaminophen Tablet PHA 07/28/24 In Process (Tylenol Tablet) 22:00 Morphine Sulfate PHA 07/28/24 In Process Injection 22:00 Sequential ANGELICA 07/28/24 In Process Compression Device Urinalysis LAB 07/28/24 In Process 21:49 * Neurology Consult CONS 07/28/24 Transmitted 22:03 *Consult Dr. Orellana CONS 07/28/24 Transmitted Arunasalam 22:03 Carvedilol Tablet PHA 07/28/24 In Process (Coreg Tablet) 22:45 Benazepril Hcl Tablet PHA 07/29/24 In Process (Lotensin Tablet) 10:00 Patients Own PHA 07/29/24 Pending Medication 06:00 Levothyroxine Tablet PHA 07/29/24 In Process (Synthroid Tablet) 06:00 Glucose Blood PHA 07/29/24 In Process (Accu-Chek Comfort 07:00 Insulin R (Human) PHA 07/29/24 In Process (Insulin R) 22:00 Insulin R (Human) PHA 07/28/24 In Process (Insulin R) 22:45 Dextrose 50% Syringe PHA 07/28/24 In Process 22:45 Electrocardigram EKG 07/28/24 Logged 22:49 Angio Head/Neck CT 07/28/24 Taken 22:58 Lipid Panel LAB 07/28/24 In Process 23:43 Sodium Chloride 0.9% PHA 07/28/24 In Process 23:45 Aspirin Tablet PHA 07/29/24 In Process 10:00 Clopidogrel Bisulfate PHA 07/29/24 In Process (Plavix) 10:00 Brain Head Wo Contrast MRI 07/28/24 Logged 23:48 Date of Service: Jul 28, 2024 Billing Provider: EVAN CASTRO MD Common Visit Codes: 50853-[id number] INP/OBS CARE (HIGH) Secondary Visit Codes: 50329-[id number] CARE PLAN 30 MINUTES JERAD BREWER RESIDENT Jul 29, 2024 00:16 EVAN CASTRO MD Jul 29, 2024 17:52
[2024-07-29 00:17] LABS: Urine Blood Negative /uL (Negative); Urine Budding Yeast OCCASIONAL /hpf (None Seen); Urine Clarity Clear (Clear); Urine Color Yellow (Yellow); Urine Protein, UAD Negative (Negative); Urine Squamous Epithelial Cell FEW /hpf (<5); Urine Urobilinogen Normal (Negative); Urine pH 5.5 (5.0-9.0)
[2024-07-29 00:18] LABS: Triglycerides 165 mg/dL (< 150)
--- NOTE | 2024-07-29 00:27 | DVH ---
INDICATION: r/o carotid stenosis COMPARISON: Noncontrast CT head 07/28/2024 TECHNIQUE: CTA head without and with intravenous contrast. CTA neck with intravenous contrast. 3D image postprocessing was performed on a dedicated workstation and images were used for interpretation and reporting. Radiation Dose Information: CT Dose: CTDI volume is mGy. Dose-length product is mGy*cm FINDINGS: CTA head: No abnormality is demonstrated in the intracranial ICAs, MCAs, and ACAs. Right A1 segment is congenit ally small. Mild plaque in intracranial vertebral arteries without stenosis. Left vertebral artery sl ightly dominant. No abnormality demonstrated in the basilar artery and left EDGERMAN. Kqkdkokl-us-dmeufd s tenosis in right P2/P3 segment. Visualized intracranial venous structures are grossly unremarkable. N o evidence of aneurysm or vascular malformation. CTA neck: Aortic arch and proximal great vessels are unremarkable. The left common, internal and external carotid arteries demonstrate no abnormality. The right common, internal and external carotid arteries demonstrate no abnormality. The cervical segments of the right and left vertebral arteries are normal. Left slightly dominant. Limited visualized lung apices are clear. Surrounding soft tissues and osseous structures are unrem arkable. IMPRESSION: No abnormality demonstrated in cervical carotid and vertebral arteries. [id number] stenosis in P2/P3 segment of right EDGERMAN. Otherwise unremarkable. All CT scans at this medical facility are performed using dose modulation techniques as appropriate t o a performed exam including the following: Automated exposure control was utilized; adjustment of th e MA and/or KV according to patient size; and use of iterative reconstruction technique.
[2024-07-29] MEDS: CLOPIDOGREL BISULFATE 75 MG TAB PO ONE (00:47)
[2024-07-29] MEDS: SODIUM CHLORIDE 0.9% 1,000 ML IV SCH (00:48)
[2024-07-29] MEDS: ASPirin 325 MG TAB PO ONE (00:48)
[2024-07-29] MEDS ORDERED: TACR1GRA PO (01:34)
[2024-07-29] MEDS ORDERED: ROSU10TA16 PO (01:34)
--- NOTE | 2024-07-29 03:29 | ECG ---
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
[2024-07-29 05:24] LABS: Basophils # (auto) 0.1 10 ^3/uL (0-0.2); Basophils % (auto) 1.4 % (0.0-2.0); Eosinophils # (auto) 0.1 10 ^3/uL (0-0.8); Eosinophils % (auto) 2.1 % (0.0-7.0); Hematocrit 40.8 % (41.0-53.0); Hemoglobin 13.9 g/dL (13.5-17.5); Lymphocytes # (auto) 2.1 10 ^3/uL (0.4-5.4); Lymphocytes % (auto) 48.3 % (10.0-50.0); Mean Corpuscular Hemoglobin 31.6 pg (28.0-32.0); Mean Corpuscular Hgb Conc. 34.1 g/dL (32.0-36.0); Mean Corpuscular Volume 92.6 fL (80.0-100.0); Monocytes # (auto) 0.4 10 ^3/uL (0-1.3); Monocytes % (auto) 8.2 % (0.0-12.0); Neutrophils # (auto) 1.8 10 ^3/uL (1.6-8.6); Nucleated Red Blood Cells % 0.2 %; Platelet Count (auto) 115 10^3/uL (140-450); Red Cell Distribution Width 12.6 % (11.8-14.3); White Blood Cell 4.4 10^3/uL (4.4-10.8)
[2024-07-29 05:41] LABS: Alanine Aminotransferase 28 U/L (7-40); Albumin 4.2 g/dL (3.2-4.8); Alkaline Phosphatase 78 U/L (46-116); Anion Gap 7 (5-15); Aspartate Aminotransferase 18 U/L (13-40); BUN/Creatinine Ratio 19.5 (10.0-20.0); Blood Urea Nitrogen 17 mg/dL (9-23); Calcium 9.4 mg/dL (8.7-10.4); Carbon Dioxide 25 mmol/L (20-31); Chloride 107 mmol/L (98-107); Potassium 4.1 mmol/L (3.5-5.1); Sodium 139 mmol/L (136-145); Total Protein 6.5 g/dL (5.7-8.2)
[2024-07-29 05:42] LABS: Bilirubin, Total 0.4 mg/dL (0.2-1.0)
[2024-07-29 05:44] LABS: Glucose 232 mg/dL (74-106)
[2024-07-29] MEDS ORDERED: PATIENTS OWN MEDICATION PO SCH (06:00)
[2024-07-29] MEDS: ACCU-CHEK COMFORT CURVE STRIP VI SCH (06:23)
[2024-07-29] MEDS: LEVOTHYROXINE SODIUM 50 MCG TAB PO SCH (06:23)
[2024-07-29] MEDS: CLOPIDOGREL BISULFATE 75 MG TAB PO SCH ×2 (08:50→18:11)
[2024-07-29] MEDS: BENAZEPRIL HCL 10 MG TAB PO SCH (08:50)
[2024-07-29] MEDS: ASPirin 81 mg TAB PO SCH (09:02)
[2024-07-29] MEDS ORDERED: TACR1CAP4 PO (09:16)
--- NOTE | 2024-07-29 11:07 | DVHPN2 ---
Progress Note - Dictate Date Seen: Jul 28, 2024 Medical Necessity Reason Pt with a Central, PICC or Fol: No Subjective PT WELL KNOWN TO ME HX OF LIVER CA S/P RESECTION S/P LIVER TRANSPLANT HX OF HEP C/ ETIOLOGY FOR LIVER CA NOW WITH RIGHT SIDED WEAKNESS CT OF HEAD NEGATIVE CTA NECK RIGHT ICA STENOSIS vital signs Vital Sign Date Time Temp Pulse Resp B/P (MAP) Pulse Ox O2 Delivery O2 Flow Rate FiO2 07/29/24 09:01 60 148/81 07/29/24 07:49 97.9 18 96 97.9 07/29/24 00:36 Room Air* 0 21 Total Intake and Output 07/28/24 07/28/24 07/29/24 15:00 23:00 07:00 Intake Total 1000 ml Balance 1000 ml medications Current Medications Medications Dose Ordered Sig/Nilesh Route Start Time Stop Time Status Last Admin Dose Admin Sodium Chloride 10 ml Q8HR IV 07/28/24 22:00 07/29/24 06:23 10 ML Sodium Chloride 1,000 ml @ 60 mls/hr [id number] IV 07/28/24 22:00 07/29/24 00:48 60 MLS/HR Acetaminophen 650 mg Q6HP PRN PO 07/28/24 22:00 Morphine Sulfate 2 mg Q4HPRN PRN IV 07/28/24 22:00 Carvedilol 12.5 mg Q12HR PO 07/28/24 22:45 07/29/24 09:01 12.5 MG Levothyroxine Sodium 50 mcg QAM@0600 PO 07/29/24 06:00 07/29/24 06:23 50 MCG Benazepril HCl 40 mg DAILY PO 07/29/24 10:00 Diagnostic Test (Pha) 1 strip ACHS 07/29/24 07:00 07/29/24 06:23 1 STRIP Insulin Human Regular HS SC 07/29/24 22:00 Insulin Human Regular AC SC 07/28/24 22:45 07/29/24 06:25 6 UNITS Dextrose 50 ml UD PRN IV 07/28/24 22:45 Aspirin 81 mg DAILY PO 07/29/24 10:00 07/29/24 09:02 81 MG Clopidogrel Bisulfate 75 mg DAILY PO 07/29/24 10:00 Tacrolimus 1 mg QPM PO 07/29/24 18:00 Tacrolimus 2 mg QAM PO 07/30/24 07:00 laboratory and microbiology Laboratory Tests 07/29/24 04:41 Test 07/29/24 04:41 Range/Units Serum Glucose 232 #H 74-106 mg/dL Problem List HX OF LIVER CA S/P RESECTION S/P LIVER TRANSPLANT HX OF HEP C/ ETIOLOGY FOR LIVER CA NOW WITH RIGHT SIDED WEAKNESS CT OF HEAD NEGATIVE CTA NECK RIGHT ICA STENOSIS Assessment/Plan CAROTID DOPPLER DAPT CONSIDER CAROTID ANGIO/ HELIUM ARC WELDER Plan discussed with: Patient Critical Care Time(min): 35 TANVI MCGEE MD Jul 29, 2024 11:07
[2024-07-29] MEDS: TACROLIMUS 1 MG CAP PO ONE (11:26)
--- NOTE | 2024-07-29 11:35 | DVH ---
EXAMINATION: MRI BRAIN HEAD WO CONTRAST INDICATION: R/o Acute CVA COMPARISON: CT scan of the head performed on 07/28/2024 TECHNIQUE: Multiplanar, multisequence magnetic resonance imaging of the brain was performed without the use of i ntravenous contrast. FINDINGS: There are 2 punctate foci of hyperintensity on the diffusion-weighted sequence in the left thalamus. There is subtle corresponding low signal intensity on the ADC map, compatible with acute infarct. No intracranial hemorrhage. No mass effect. Mild generalized volume loss. There is periventricular/deep white matter T2/FLAIR hyperintensity is nonspecific, but most commonly associated with chronic microvascular disease. The ventricles and sulci are normal in size for age. Clear basal cisterns. Flow voids in the major intracranial vessels are maintained. No abnormality of the orbits. Paranasal sinuses and mastoid air cells are clear. No abnormality of the visualized osseous structures and extracranial soft tissues. IMPRESSION: 1. Two punctate acute infarcts in the left thalamus.
--- NOTE | 2024-07-29 14:52 | DVHPN2 ---
Subjective Patient continues to have right facial numbness. States that his paresthesia to right arm has improved. Denies having any motor deficits. Reviewed: Care Plan, H&P, Labs, Medications, Previous Orders Changes from previous H/P or p: No Changes General: Per HPI Eyes: No Pain, No Vision change, No Conjunctivae inflammation, No Eyelid inflammation, No Other, No Redness ENT: No Ear pain, No Ear discharge, No Nose pain, No Nose discharge, No Nose congestion, No Mouth pain, No Mouth swelling, No Throat pain, No Throat swelling, No Other Cardiovascular: No Chest Pain, No Palpitations, No Orthopnea, No Paroxysmal Noc. Dyspnea, No Edema, No Lt Headedness, No Other Respiratory: No Cough, No Dry, No Shortness of breath, No SOB with excertion, No Wheezing, No Hemoptysis, No Pleuritic Pain, No Sputum, No Other Gastrointestinal: No Nausea, No Vomiting, No Abdominal Pain, No Diarrhea, No Constipation, No Melena, No Hematochezia, No Other Genitourinary: No Dysuria, No Frequency, No Incontinence, No Hematuria, No Retention, No Other Musculoskeletal: No other, No neck pain, No shoulder pain, No arm pain, No back pain, No hand pain, No leg pain, No foot pain Skin: No Rash, No Lesions, No Jaundice, No Bruising, No Other Objective Vitals Vital Signs Date Time Temp Pulse Resp B/P (MAP) Pulse Ox O2 Delivery O2 Flow Rate FiO2 07/29/24 12:20 51 153/70 07/29/24 12:09 97.6 18 96 97.6 07/29/24 00:36 Room Air* 0 21 Intake/Output Intake and Output 07/29/24 07:00 Intake Total 1000 ml Balance 1000 ml Intake IV Total 1000 ml General Appearance: Alert, Oriented X3, Cooperative, No acute distress HEENT: Atraumatic, PERRLA Cardiovascular: Normal S1, Normal S2 Abdomen: Normal bowel sounds, Soft, No tenderness, No hepatospenomegaly, No masses Musculoskeletal: Normal sensory function, Normal motor function Skin: Dry, Intact Psych/Mental Status: Mental status NL, Mood NL Medications Current Medications Medications Dose Ordered Sig/Nilesh Route Start Time Stop Time Status Last Admin Dose Admin Sodium Chloride 10 ml Q8HR IV 07/28/24 22:00 07/29/24 06:23 10 ML Sodium Chloride 1,000 ml @ 60 mls/hr [id number] IV 07/28/24 22:00 07/29/24 00:48 60 MLS/HR Acetaminophen 650 mg Q6HP PRN PO 07/28/24 22:00 Morphine Sulfate 2 mg Q4HPRN PRN IV 07/28/24 22:00 Carvedilol 12.5 mg Q12HR PO 07/28/24 22:45 07/29/24 09:01 12.5 MG Levothyroxine Sodium 50 mcg QAM@0600 PO 07/29/24 06:00 07/29/24 06:23 50 MCG Benazepril HCl 40 mg DAILY PO 07/29/24 10:00 Diagnostic Test (Pha) 1 strip ACHS 07/29/24 07:00 07/29/24 11:31 1 STRIP Insulin Human Regular HS SC 07/29/24 22:00 Insulin Human Regular AC SC 07/28/24 22:45 07/29/24 11:32 3 UNITS Dextrose 50 ml UD PRN IV 07/28/24 22:45 Aspirin 81 mg DAILY PO 07/29/24 10:00 07/29/24 09:02 81 MG Tacrolimus 1 mg QPM PO 07/29/24 18:00 Tacrolimus 2 mg QAM PO 07/30/24 07:00 Clopidogrel Bisulfate 75 mg DAILY PO 07/29/24 18:00 UNV Laboratory Results Laboratory Tests 07/29/24 04:41 Chemistry Test 07/28/24 22:03 07/29/24 04:41 Albumin 4.4 g/dL (3.2-4.8) 4.2 g/dL (3.2-4.8) Calcium Level 9.9 mg/dL (8.7-10.4) 9.4 mg/dL (8.7-10.4) Magnesium Level 2.0 mg/dL (1.6-2.6) Total Protein 6.9 g/dL (5.7-8.2) 6.5 g/dL (5.7-8.2) Coagulation Test 07/28/24 22:03 Prothrombin Time 11.0 sec (9.3-11.8) Prothrombin Time INR 1.04 (0.9-1.15) Activated Partial Thromboplast Time 25.7 SEC (24.5-34.5) D-Dimer, Quantitative 0.58 mg/L FEU (0.0-0.49) H Lipid panel Test 07/28/24 22:03 Cholesterol Level 146 mg/dL (< 200) HDL Cholesterol 42 mg/dL (40-59) Triglycerides Level 165 mg/dL (< 150) H Cardiac Markers Test 07/28/24 22:03 B-Type Natriuretic Peptide 19.50 pg/mL (0-100) LFT Test 07/28/24 22:03 07/29/24 04:41 Alanine Aminotransferase (ALT) 30 U/L (7-40) 28 U/L (7-40) Alkaline Phosphatase 88 U/L (46-116) 78 U/L (46-116) Aspartate Amino Transferase (AST) 21 U/L (13-40) 18 U/L (13-40) Total Bilirubin 0.5 mg/dL (0.2-1.0) 0.4 mg/dL (0.2-1.0) HgA1c, TSH Test 07/28/24 22:03 Hemoglobin A1c 10.3 % A1C (<5.7) H Thyroid Stimulating Hormone (TSH) 1.48 uIU/mL (0.55-4.78) Urinalysis Test 07/28/24 23:33 Urine Color Yellow (Yellow) Urine Clarity Clear (Clear) Urine pH 5.5 (5.0-9.0) Urine Specific [place] 1.030 (1.001-1.035) Urine Protein Negative (Negative) Urine Ketones Negative (Negative) Urine Blood Negative /uL (Negative) Urine Nitrite Negative (Negative) Urine Bilirubin Negative (Negative) Urine Urobilinogen Normal mg/dL (Negative) Urine Leukocyte Esterase Negative /uL (Negative) Urine RBC <1 /hpf (0 - 3) Urine Microscopic WBC /HPF (0-3) Urine Squamous Epithelial Cells Few /hpf (<5) Urine Bacteria None seen /hpf (None Seen) Urine Yeast (Budding) Occasional /hpf (None Urine Glucose 4+ mg/dL (Normal) H Labs and/or images reviewed: Labs reviewed by me, Image(s) reviewed by me Assessment/Plan Assessment/Plan Impression: -acute CVA -history of liver cancer with liver transplant -obesity -primary hypertension -diabetes mellitus with poor control. Noted hemoglobin A1c of 10.3. 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 Patient was blood pressure around 150 mmHg -cardiology consultation. Discussed case with Dr. Orellana with plans for possible carotid angiogram and stenting tomorrow. -NPO after midnight -plan of care discussed with patient regarding procedure. At this time he was agreeable. Total time spent with patient and family regarding advance care plannin minutes. Total time spent with patient discussing and formulating plan of care: 35 minutes. This medical document was created using an electronic medical record system with [employer] dictation system. Although this document has been carefully reviewed, there may still be some phonetic and typographical errors. These areas are purely typographical due to imperfections of the software programs, and do not reflect any compromise in the patient's medical care. Plan discussed with: Patient, Other (RN) Date of Service: Jul 29, 2024 Billing Provider: FEDE DUONG NP Common Visit Codes: [id number] INP/OBS CARE(HIGH) Secondary Visit Codes: [id number] CARE PLAN 30 MINUTES FEDE DUONG NP Jul 29, 2024 14:52
--- NOTE | 2024-07-29 16:01 | DVH ---
Carotid Duplex Date: 07/29/2024 02:47 PM Clinical History: Right Side Numbness Comparison: None Technique: Duplex Doppler evaluation of the extracranial carotid and vertebral arteries including color Doppler and spectral/pulsed waveform analysis was performed. Findings: Velocities and ratios within normal limits. IMPRESSION: No hemodynamically significant stenosis noted in the right carotid system. No hemodynamically significant stenosis noted in the left carotid system. Reference: Radiology 2003; [id number]
[2024-07-29] MEDS: TACROLIMUS 1 MG CAP PO SCH (18:11)
--- NOTE | 2024-07-29 22:04 | DVHINCON2 ---
Date of service: Jul 29, [address] Aguiar Reason for Consultation Right-sided face, upper and lower extremity numbness History of Present Illness Mr. 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 At this time, he was alert and fully oriented, he provided the following history During daytime on 07/23/2024, he developed numbness in the whole right upper extremity, right face, and right torso, but without weakness. The symptoms were worse on 07/24/2024, but was milder on 07/25/2024, 07/26/2024 but worsened again on 07/27/24, and he decided to seek medical attention. He was never had similar problem before He was on Rosuvastatin 10 mg daily but no aspirin or antiplatelet agent He snores when he was tired, his sleep is refreshing, he was good energy throughout the day, he had a negative sleep study a few years earlier UDS, 07/28/2024: Negative Plasma alcohol, 07/28/2024: <3 Urinalysis, 07/28/2024: Unremarkable CBC, 07/29/2024: Unremarkable CMP, 07/29/2024: Unremarkable HGB A1c, 07/28/2024: 10.3 Lactic acid, 07/28/2024: 2.2, 07/29/2024: 1.2 TG/HDL/LDL/HDL, 07/28/2024: 165/146/81/42 TSH, 07/28/2024:1.48 Carotid Doppler, 07/29/2024: No hemodynamically significant stenosis noted in the right carotid system. No hemodynamically significant stenosis noted in the l eft carotid system CTA head, neck, 07/29/2024: No abnormality demonstrated in cervical carotid and vertebral arteries. MR head, 07/29/2024: Two punctate acute infarcts in the left thalamus. Past Medical History Hypertension, diabetes, dyslipidemia, hypothyroidism, cancer secondary to hepatitis-C, Past Surgical History Hernia repair, liver transplantation Family History: Diabetes mellitus G8 MOTHER Family History Diabetes Social History He was a light tobacco smoker. No history of alcohol or recreational substances abuse Allergies: Coded Allergies: NO KNOWN ALLERGIES (Unverified , 03/02/12) Home Meds Reported Medications Tacrolimus (Tacrolimus) 1 Mg Cap, 2 MG PO QAM 07/29/24 Tacrolimus (Prograf) 1 Mg Gra, 1 MG PO TID, GRA 07/29/24 Rosuvastatin Calcium (Crestor) 10 Mg Tab, 1 TAB PO DAILY, #30 TAB 5 Refills 07/29/24 Carvedilol (Carvedilol) 6.25 Mg Tab, 6.25 MG OR BID 03/02/12 Olmesartan Medoxomil-Hydrochlo (Benicar Hct) 1 Tab Tab, 1 TAB OR DAILY 03/02/12 Levothyroxine Sodium (Levothyroxine Sodium) 25 Mcg Tab, 25 MCG OR DAILY 03/02/12 Metformin Hydrochloride (Metformin Hcl) 500 Mg Tab, 500 MG OR BID 03/02/12 Current Medications Current Medications Medications (Trade) Dose Ordered Sig/Nilesh Route PRN Reason Start Time Stop Time Status Last Admin Sodium Chloride (Saline Lock Ns) 10 ml Q8HR IV 07/28/24 22:00 07/29/24 21:02 Sodium Chloride 1,000 ml @ 60 mls/hr [id number] IV 07/28/24 22:00 07/29/24 14:49 DC 07/29/24 00:48 Acetaminophen (Tylenol Tablet) 650 mg Q6HP PRN PO PAIN SCALE 1-3 OR TEMP>100.4 07/28/24 22:00 Morphine Sulfate 2 mg Q4HPRN PRN IV SEVERE PAIN (7-10 PAIN SCALE) 07/28/24 22:00 Carvedilol (Coreg Tablet) 12.5 mg Q12HR PO 07/28/24 22:45 07/29/24 21:02 Levothyroxine Sodium (Synthroid Tablet) 50 mcg QAM@0600 PO 07/29/24 06:00 07/29/24 06:23 Benazepril HCl (Lotensin Tablet) 40 mg DAILY PO 07/29/24 10:00 Patient Own Medication 1 TID PO 07/29/24 06:00 07/29/24 09:56 DC Diagnostic Test (Pha) (Accu-Chek Comfort Curve T) 1 strip ACHS 07/29/24 07:00 07/29/24 18:11 Insulin Human Regular (InsuLIN R) HS SC 07/29/24 22:00 Insulin Human Regular (InsuLIN R) AC SC 07/28/24 22:45 07/29/24 18:09 Dextrose 50 ml UD PRN IV Blood Sugar LESS THAN 60 07/28/24 22:45 Aspirin 81 mg DAILY PO 07/29/24 10:00 07/29/24 09:02 Clopidogrel Bisulfate (Plavix) 75 mg DAILY PO 07/29/24 10:00 07/29/24 14:09 DC Tacrolimus (Prograf) 1 mg QPM PO 07/29/24 18:00 07/29/24 18:11 Tacrolimus (Prograf) 2 mg QAM PO 07/30/24 07:00 Clopidogrel Bisulfate (Plavix) 75 mg DAILY PO 07/29/24 18:00 07/29/24 18:11 Review of Systems As above, the other systems are negative Vital Signs Vital Signs Date Time Temp Pulse Resp B/P (MAP) Pulse Ox O2 Delivery O2 Flow Rate FiO2 07/29/24 21:02 60 146/76 07/29/24 21:00 98.0 15 95 98.0 07/29/24 16:22 Room Air* 0 21 Physical Exam GENERAL EXAM: General: the patient is well developed and nourished. No acute distress. HEENT: Normocephalic, neck is supple, no carotid bruits. No mass. The throat is Mallampati grade RESPIRATORY: Normal respiratory effort with symmetrical lung expansion. Lungs clear to auscultation. CARDIOVASCULAR: Regular rate and rhythm with no murmurs. S1, S2. ABDOMEN: Soft, nontender, normal bowel sound NEUROLOGICAL: MENTAL STATUS: Awake and alert. Oriented to person, place, time and general circumstances. Able to give personal history SPEECH, LANGUAGE, HIGHER CORTICAL FUNCTION: no aphasia or dysathria. CRANIAL NERVES: #2: Intact visual jefferson to confrontation. The optic discs were sharp. #3,4,6: Pupils are equal, round and reactive. EOMs full and conjugate. #5: Facial sensation intact in all three divisions bilaterally. Mandibular strength intact. #7: Facial muscles symmetrical and strength intact. #8: Hearing grossly normal to voice. #9,10: Uvula and soft palate rise in the midline. Swallow and voice are normal. #11: Trapezius and sternomastoid strength intact bilaterally. #12: Tongue midline. No fasciculations or atrophy. SENSATION: Sensation to touch and pinprick is normal. MOTOR: Normal tone in the upper and lower extremity. Normal muscle bulk. No fasciculations. No abnormal movements or posturing. Muscle strength of the major groups in the upper extremities is 5/5. Muscle strength of the major groups in the lower extremities is 5/5. REFLEXES: Deep tendon reflexes are symmetrical. No pathological reflexes. CEREBELLAR/COORDINATION: Finger to nose is normal bilaterally. GAIT/STATION: deferred. Labs/Diagnostic Data Labs Test 07/29/24 21:11 07/29/24 04:41 07/29/24 00:12 07/28/24 23:33 Range/Units POC Glucose 295 H 70-106 mg/dl White Blood Count 4.4 4.4-10.8 10^3/uL Red Blood Count 4.40 L 4.5-5.90 10^6/uL Hemoglobin 13.9 13.5-17.5 g/dL Hematocrit 40.8 L 41.0-53.0 % Mean Corpuscular Volume 92.6 80.0-100.0 fL Mean Corpuscular Hemoglobin 31.6 28.0-32.0 pg Mean Corpuscular Hemoglobin Concent 34.1 32.0-36.0 g/dL Red Cell Distribution Width 12.6 11.8-14.3 % Platelet Count 115 L 140-450 10^3/uL Mean Platelet Volume 9.4 6.9-10.8 fL Neutrophils (%) (Auto) 40.0 37.0-80.0 % Lymphocytes (%) (Auto) 48.3 10.0-50.0 % Monocytes (%) (Auto) 8.2 0.0-12.0 % Eosinophils (%) (Auto) 2.1 0.0-7.0 % Basophils (%) (Auto) 1.4 0.0-2.0 % Neutrophils # (Auto) 1.8 1.6-8.6 10 ^3/uL Lymphocytes # (Auto) 2.1 0.4-5.4 10 ^3/uL Monocytes # (Auto) 0.4 0-1.3 10 ^3/uL Eosinophils # (Auto) 0.1 0-0.8 10 ^3/uL Basophils # (Auto) 0.1 0-0.2 10 ^3/uL Nucleated Red Blood Cells 0.2 % Sodium Level 139 136-145 mmol/L Potassium Level 4.1 3.5-5.1 mmol/L Chloride Level 107 98-107 mmol/L Carbon Dioxide Level 25 20-31 mmol/L Anion Gap 7 5-15 Blood Urea Nitrogen 17 9-23 mg/dL Creatinine 0.87 0.700-1.30 mg/dL Glomerular Filtration Rate Calc 96 >90 mL/min BUN/Creatinine Ratio 19.5 10.0-20.0 Serum Glucose 232 #H 74-106 mg/dL Calcium Level 9.4 8.7-10.4 mg/dL Total Bilirubin 0.4 0.2-1.0 mg/dL Aspartate Amino Transferase (AST) 18 13-40 U/L Alanine Aminotransferase (ALT) 28 7-40 U/L Alkaline Phosphatase 78 46-116 U/L Total Protein 6.5 5.7-8.2 g/dL Albumin 4.2 3.2-4.8 g/dL Lactic Acid Level 1.2 0.4-2.0 mmol/L Urine Color Yellow Yellow Urine Clarity Clear Clear Urine pH 5.5 5.0-9.0 Urine Specific [place] 1.030 1.001-1.035 Urine Protein Negative Negative Urine Ketones Negative Negative Urine Blood Negative Negative /uL Urine Nitrite Negative Negative Urine Bilirubin Negative Negative Urine Urobilinogen Normal Negative mg/dL Urine Leukocyte Esterase Negative Negative /uL Urine RBC <1 0 - 3 /hpf Urine Microscopic WBC 0-3 /HPF Urine Squamous Epithelial Cells Few <5 /hpf Urine Bacteria None seen None Seen /hpf Urine Yeast (Budding) Occasional None Seen /hpf Urine Glucose 4+ H Normal mg/dL Urine Opiates Screen Neg NEGATIVE Urine Fentanyl Screen Neg NEGATIVE Urine Barbiturates Screen Neg NEGATIVE Urine Phencyclidine Screen Neg NEGATIVE Urine Amphetamines Screen Neg NEGATIVE Urine Benzodiazepines Screen Neg NEGATIVE Urine Cocaine Screen Neg NEGATIVE Urine Cannabinoids Screen Neg NEGATIVE Test 07/28/24 23:25 07/28/24 23:24 07/28/24 22:03 07/28/24 14:11 Range/Units Influenza Type A Antigen Negative Negative Influenza Type B Antigen Negative Negative SARS-CoV-2 Antigen (Rapid) Negative NEGATIVE Prothrombin Time 11.0 9.3-11.8 sec Prothrombin Time INR 1.04 0.9-1.15 Activated Partial Thromboplast Time 25.7 24.5-34.5 SEC D-Dimer, Quantitative 0.58 H 0.0-0.49 mg/L FEU Hemoglobin A1c 10.3 H <5.7 % A1C Magnesium Level 2.0 1.6-2.6 mg/dL B-Type Natriuretic Peptide 19.50 0-100 pg/mL Triglycerides Level 165 H < 150 mg/dL Cholesterol Level 146 < 200 mg/dL LDL Cholesterol 81 < 100 mg/dL HDL Cholesterol 42 40-59 mg/dL Thyroid Stimulating Hormone (TSH) 1.48 0.55-4.78 uIU/mL Free Thyroxine (T4) Calculated 1.16 0.89-1.76 ng/dL Total Triiodothyronine (TT3) 0.93 0.60-1.81 ng/mL Plasma/Serum Blood Alcohol < 3.0 <10 mg/dL Troponin I High Sensitivity 6 </=54 ng/L Assessment Right-sided paresthesia secondary to acute stroke Multiple punctate strokes Multiple stroke risk factors Plan/Recommendation Monitoring Supportive treatment Telemetry Carotid Doppler Aspirin 81 mg daily Plavix 75 mg daily for 21 days (till 08/17/24) Lipitor 20 mg daily Stroke risk factors discussed Lifestyle discussed More recommendation per clinical course Prognosis: Poor This medical document was created using an electronic medical record system with [employer] computerized dictation system. Although this document has been carefully reviewed, there may still be some phonetic and typographical errors. These areas are purely typographical due to imperfections of the software programs, and do not reflect any compromise in the patient's medical care. Plan discussed with: Patient, Other KENIA RITTER MD Jul 29, 2024 22:04
[2024-07-30] VITALS (12 sets, daily range): BP systolic 125–153; BP diastolic 70–85; PULSE 51–62; RESP 12–20; TEMP 97.4–98.3; O2SAT 92–98
[2024-07-30] MEDS: TACROLIMUS 1 MG CAP PO SCH (06:16)
--- NOTE | 2024-07-30 09:07 | DVHPN2 ---
Progress Note - Dictate Date Seen: Jul 29, 2024 Medical Necessity Reason Pt with a Central, PICC or Fol: No Subjective PT WELL KNOWN TO ME HX OF LIVER CA S/P RESECTION S/P LIVER TRANSPLANT HX OF HEP C/ ETIOLOGY FOR LIVER CA NOW WITH RIGHT SIDED WEAKNESS CT OF HEAD NEGATIVE CTA NECK RIGHT ICA STENOSIS vital signs Vital Sign Date Time Temp Pulse Resp B/P (MAP) Pulse Ox O2 Delivery O2 Flow Rate FiO2 07/30/24 08:00 51 17 97 Room Air* 0 21 07/30/24 05:00 145/77 07/30/24 05:00 97.7 97.7 Total Intake and Output 07/29/24 07/29/24 07/30/24 15:00 23:00 07:00 Intake Total 500 ml 250 ml Output Total 500 ml Balance 500 ml -250 ml medications Current Medications Medications Dose Ordered Sig/Nilesh Route Start Time Stop Time Status Last Admin Dose Admin Sodium Chloride 10 ml Q8HR IV 07/28/24 22:00 07/30/24 06:23 10 ML Acetaminophen 650 mg Q6HP PRN PO 07/28/24 22:00 Morphine Sulfate 2 mg Q4HPRN PRN IV 07/28/24 22:00 Carvedilol 12.5 mg Q12HR PO 07/28/24 22:45 07/29/24 21:02 12.5 MG Levothyroxine Sodium 50 mcg QAM@0600 PO 07/29/24 06:00 07/30/24 06:15 50 MCG Benazepril HCl 40 mg DAILY PO 07/29/24 10:00 Diagnostic Test (Pha) 1 strip ACHS 07/29/24 07:00 07/30/24 06:29 1 STRIP Insulin Human Regular HS SC 07/29/24 22:00 07/29/24 21:58 6 UNITS Insulin Human Regular AC SC 07/28/24 22:45 07/30/24 06:07 6 UNITS Dextrose 50 ml UD PRN IV 07/28/24 22:45 Aspirin 81 mg DAILY PO 07/29/24 10:00 07/29/24 09:02 81 MG Tacrolimus 1 mg QPM PO 07/29/24 18:00 07/29/24 18:11 1 MG Tacrolimus 2 mg QAM PO 07/30/24 07:00 07/30/24 06:16 2 MG Clopidogrel Bisulfate 75 mg DAILY PO 07/30/24 10:00 08/17/24 09:59 Atorvastatin Calcium 20 mg HS PO 07/30/24 22:00 laboratory and microbiology Laboratory Tests 07/29/24 04:41 Test 07/29/24 04:41 Range/Units Serum Glucose 232 #H 74-106 mg/dL Problem List HX OF LIVER CA S/P RESECTION S/P LIVER TRANSPLANT HX OF HEP C/ ETIOLOGY FOR LIVER CA NOW WITH RIGHT SIDED WEAKNESS CT OF HEAD NEGATIVE CTA NECK RIGHT ICA STENOSIS Assessment/Plan CAROTID DOPPLER DAPT CONSIDER CAROTID ANGIO/ PRECISION MARKET INSIGHTS CAROTID ANGIO Plan discussed with: Patient Critical Care Time(min): 35 TANVI MCGEE MD Jul 30, 2024 09:07
--- NOTE | 2024-07-30 10:44 | DVHPN2 ---
Subjective Patient continues to have right facial numbness. States that his paresthesia to right arm has improved. Denies having any motor deficits. Reviewed: Care Plan, H&P, Labs, Medications, Previous Orders Changes from previous H/P or p: No Changes General: Per HPI Eyes: No Pain, No Vision change, No Conjunctivae inflammation, No Eyelid inflammation, No Other, No Redness ENT: No Ear pain, No Ear discharge, No Nose pain, No Nose discharge, No Nose congestion, No Mouth pain, No Mouth swelling, No Throat pain, No Throat swelling, No Other Cardiovascular: No Chest Pain, No Palpitations, No Orthopnea, No Paroxysmal Noc. Dyspnea, No Edema, No Lt Headedness, No Other Respiratory: No Cough, No Dry, No Shortness of breath, No SOB with excertion, No Wheezing, No Hemoptysis, No Pleuritic Pain, No Sputum, No Other Gastrointestinal: No Nausea, No Vomiting, No Abdominal Pain, No Diarrhea, No Constipation, No Melena, No Hematochezia, No Other Genitourinary: No Dysuria, No Frequency, No Incontinence, No Hematuria, No Retention, No Other Musculoskeletal: No other, No neck pain, No shoulder pain, No arm pain, No back pain, No hand pain, No leg pain, No foot pain Skin: No Rash, No Lesions, No Jaundice, No Bruising, No Other Objective Vitals Vital Signs Date Time Temp Pulse Resp B/P (MAP) Pulse Ox O2 Delivery O2 Flow Rate FiO2 07/30/24 09:00 98.1 51 17 133/85 (101) 97 98.1 07/30/24 08:00 Room Air* 0 21 Intake/Output Intake and Output 07/30/24 07:00 Intake Total 750 ml Output Total 500 ml Balance 250 ml Intake Oral 750 ml Output Urine Total 500 ml General Appearance: Alert, Oriented X3, Cooperative, No acute distress HEENT: Atraumatic, PERRLA Cardiovascular: Normal S1, Normal S2 Abdomen: Normal bowel sounds, Soft, No tenderness, No hepatospenomegaly, No masses Musculoskeletal: Normal sensory function, Normal motor function Skin: Dry, Intact Psych/Mental Status: Mental status NL, Mood NL Medications Current Medications Medications Dose Ordered Sig/Nilesh Route Start Time Stop Time Status Last Admin Dose Admin Sodium Chloride 10 ml Q8HR IV 07/28/24 22:00 07/30/24 06:23 10 ML Acetaminophen 650 mg Q6HP PRN PO 07/28/24 22:00 Morphine Sulfate 2 mg Q4HPRN PRN IV 07/28/24 22:00 Carvedilol 12.5 mg Q12HR PO 07/28/24 22:45 07/29/24 21:02 12.5 MG Levothyroxine Sodium 50 mcg QAM@0600 PO 07/29/24 06:00 07/30/24 06:15 50 MCG Benazepril HCl 40 mg DAILY PO 07/29/24 10:00 Diagnostic Test (Pha) 1 strip ACHS 07/29/24 07:00 07/30/24 06:29 1 STRIP Insulin Human Regular HS SC 07/29/24 22:00 07/29/24 21:58 6 UNITS Insulin Human Regular AC SC 07/28/24 22:45 07/30/24 06:07 6 UNITS Dextrose 50 ml UD PRN IV 07/28/24 22:45 Aspirin 81 mg DAILY PO 07/29/24 10:00 07/29/24 09:02 81 MG Tacrolimus 1 mg QPM PO 07/29/24 18:00 07/29/24 18:11 1 MG Tacrolimus 2 mg QAM PO 07/30/24 07:00 07/30/24 06:16 2 MG Clopidogrel Bisulfate 75 mg DAILY PO 07/30/24 10:00 08/17/24 09:59 Atorvastatin Calcium 20 mg HS PO 07/30/24 22:00 Laboratory Results Laboratory Tests 07/29/24 04:41 Urinalysis Test 07/28/24 23:33 Urine Color Yellow (Yellow) Urine Clarity Clear (Clear) Urine pH 5.5 (5.0-9.0) Urine Specific [place] 1.030 (1.001-1.035) Urine Protein Negative (Negative) Urine Ketones Negative (Negative) Urine Blood Negative /uL (Negative) Urine Nitrite Negative (Negative) Urine Bilirubin Negative (Negative) Urine Urobilinogen Normal mg/dL (Negative) Urine Leukocyte Esterase Negative /uL (Negative) Urine RBC <1 /hpf (0 - 3) Urine Microscopic WBC /HPF (0-3) Urine Squamous Epithelial Cells Few /hpf (<5) Urine Bacteria None seen /hpf (None Seen) Urine Yeast (Budding) Occasional /hpf (None Urine Glucose 4+ mg/dL (Normal) H Labs and/or images reviewed: Labs reviewed by me, Image(s) reviewed by me Assessment/Plan Assessment/Plan Impression: -acute CVA -history of liver cancer with liver transplant -obesity -primary hypertension -diabetes mellitus with poor control. Noted hemoglobin A1c of 10.3. Plan: Events: No events overnight. Neurology consultation was placed. Recommendations reviewed. Discussed case with Dr. Orellana, with the patient to go for carotid angiogram/angioplasty. -MRI of the brain positive for acute thalamus CVA -CT angiogram of the neck positive for [id number] stenosis of [employer] -regular insulin sliding scale -permissive hypertension. Patient was blood pressure around 150 mmHg -cardiology consultation. Recommendations reviewed -plan of care discussed with patient regarding procedure. At this time he was agreeable. Total time spent with patient discussing and formulating plan of care: 35 minutes. This medical document was created using an electronic medical record system with [employer] dictation system. Although this document has been carefully reviewed, there may still be some phonetic and typographical errors. These areas are purely typographical due to imperfections of the software programs, and do not reflect any compromise in the patient's medical care. Plan discussed with: Patient, Other (RN) My Orders Orders - FEDE DUONG NP Procedure Category Date Status Time Npo After Midnight DIET 07/29/24 Transmitted Dinner Obtain Consent For: ORDERS 07/29/24 Transmitted 15:06 Obtain Consent For ANGELICA 07/29/24 In Process Anesthesia 15:06 Basic Metabolic Panel LAB 07/31/24 Verified 04:00 Hemoglobin & LAB 07/31/24 Verified Hematocrit 04:00 Consistent DIET 07/30/24 Transmitted Carb(Ccho)Diabetes Dinner Date of Service: Jul 30, 2024 Billing Provider: FEDE DUONG NP Common Visit Codes: [id number] INP/OBS CARE(HIGH) FEDE DUONG NP Jul 30, 2024 10:44
[2024-07-30] MEDS: CLOPIDOGREL BISULFATE 75 MG TAB PO SCH (10:52)
[2024-07-30] MEDS: LIDOCAINE 2%HCL (LOCAL ANESTH.) INJ 20ML MDV ONE (12:53)
[2024-07-30] MEDS: ANGIOMAX 250 MG VIAL IV ONE (13:06)
[2024-07-30] MEDS: GLYCOPYRROLATE 0.2 MG/ML 1ML VIAL ONE (13:06)
[2024-07-30] MEDS: SODIUM CHL 0.9% 50 ML ONE (13:07)
[2024-07-30] MEDS: IODIXANOL 320MG/ML 100ML BTL IV ONE (13:42)
--- NOTE | 2024-07-30 13:43 | DVHPN2 ---
Progress Note - Dictate Date Seen: Jul 30, 2024 Medical Necessity Reason Pt with a Central, PICC or Fol: No Subjective PT WELL KNOWN TO ME HX OF LIVER CA S/P RESECTION S/P LIVER TRANSPLANT HX OF HEP C/ ETIOLOGY FOR LIVER CA NOW WITH RIGHT SIDED WEAKNESS CT OF HEAD NEGATIVE CTA NECK RIGHT ICA STENOSIS vital signs Vital Sign Date Time Temp Pulse Resp B/P (MAP) Pulse Ox O2 Delivery O2 Flow Rate FiO2 07/30/24 10:58 138/75 07/30/24 10:00 55 07/30/24 09:00 98.1 17 97 98.1 07/30/24 08:00 Room Air* 0 21 Total Intake and Output 07/29/24 07/29/24 07/30/24 15:00 23:00 07:00 Intake Total 500 ml 250 ml Output Total 500 ml Balance 500 ml -250 ml medications Current Medications Medications Dose Ordered Sig/Nilesh Route Start Time Stop Time Status Last Admin Dose Admin Sodium Chloride 10 ml Q8HR IV 07/28/24 22:00 07/30/24 06:23 10 ML Acetaminophen 650 mg Q6HP PRN PO 07/28/24 22:00 Morphine Sulfate 2 mg Q4HPRN PRN IV 07/28/24 22:00 Carvedilol 12.5 mg Q12HR PO 07/28/24 22:45 07/29/24 21:02 12.5 MG Levothyroxine Sodium 50 mcg QAM@0600 PO 07/29/24 06:00 07/30/24 06:15 50 MCG Benazepril HCl 40 mg DAILY PO 07/29/24 10:00 07/30/24 10:58 40 MG Diagnostic Test (Pha) 1 strip ACHS 07/29/24 07:00 07/30/24 06:29 1 STRIP Insulin Human Regular HS SC 07/29/24 22:00 07/29/24 21:58 6 UNITS Insulin Human Regular AC SC 07/28/24 22:45 07/30/24 06:07 6 UNITS Dextrose 50 ml UD PRN IV 07/28/24 22:45 Aspirin 81 mg DAILY PO 07/29/24 10:00 07/30/24 10:51 81 MG Tacrolimus 1 mg QPM PO 07/29/24 18:00 07/29/24 18:11 1 MG Tacrolimus 2 mg QAM PO 07/30/24 07:00 07/30/24 06:16 2 MG Clopidogrel Bisulfate 75 mg DAILY PO 07/30/24 10:00 08/17/24 09:59 07/30/24 10:52 75 MG Atorvastatin Calcium 20 mg HS PO 07/30/24 22:00 laboratory and microbiology Laboratory Tests 07/29/24 04:41 Test 07/29/24 04:41 Range/Units Serum Glucose 232 #H 74-106 mg/dL Problem List HX OF LIVER CA S/P RESECTION S/P LIVER TRANSPLANT HX OF HEP C/ ETIOLOGY FOR LIVER CA NOW WITH RIGHT SIDED WEAKNESS CT OF HEAD NEGATIVE CTA NECK RIGHT ICA STENOSIS Assessment/Plan CAROTID DOPPLER DAPT CONSIDER CAROTID ANGIO/ PRODUCT SAFETY HEAD CAROTID ANGIO patent carotid anatomy Plan discussed with: Patient, Spouse TANVI MCGEE MD Jul 30, 2024 13:43
--- NOTE | 2024-07-30 14:12 | DVHOP ---
DATE OF SURGERY: 07/30/2024 PROCEDURES PERFORMED: * Selective left and right carotid angiography. * Selective left and right cerebral angiography. * Right iliac angiography. * Conscious sedation was given. DESCRIPTION OF PROCEDURE: The patient was prepped and draped under sterile condition. Xylocaine 1% was used to anesthetize the right groin. Using Cook needle, right femoral artery was engaged with Seldinger technique, a 6-Ecuadorean sheath in the right femoral artery. Using 6-Ecuadorean JR4 diagnostic catheter with an angled Terumo wire, we were able to cannulate the right common carotid artery. Angiography of the subclavian branch brachiocephalic and the right carotid angiography was performed. Then, JR4 diagnostic catheter was then slowly pulled back and the left common carotid artery was cannulated. There were no complications. The patient tolerated the procedure well. RESULTS: * Left and right common carotid without any flow-restrictive lesion. * Left and right internal carotid artery, no flow-restrictive lesion. * Left and right external iliac carotid artery without any flow-restrictive lesion. * Bilateral cerebral angiography failed to demonstrate any discrete lesions or stenosis. At this time, no further workup is required, even though CTA showed the patient to have high-grade narrowing in the right proximal internal carotid artery, the angiography failed to demonstrate any such stenosis. The patient has extensive dental workup done that could have accounted for the reported allergy. Esteban Rehman MD SA/JORDAN/SALOME TID: [id number] RECEIPT: [id number]
[2024-07-30] MEDS ORDERED: ASPI1TAB20 PO (16:59)
[2024-07-30] MEDS ORDERED: CLOP75TA28 PO (16:59)
--- NOTE | 2024-07-30 17:03 | DVHDS2 ---
Discharge Summary Date of Admission Jul 28, 2024 at 21:49 Date of Discharge: Jul 30, 2024 Admitting Diagnosis Acute CVA Labs/Diagnostic Data: Laboratory Results Test 07/30/24 11:08 07/29/24 04:41 07/29/24 00:12 07/28/24 23:33 POC Glucose 140 mg/dl (70-106) White Blood Count 4.4 10^3/uL (4.4-10.8) Red Blood Count 4.40 10^6/uL (4.5-5.90) Hemoglobin 13.9 g/dL (13.5-17.5) Hematocrit 40.8 % (41.0-53.0) Mean Corpuscular Volume 92.6 fL (80.0-100.0) Mean Corpuscular Hemoglobin 31.6 pg (28.0-32.0) Mean Corpuscular Hemoglobin Concent 34.1 g/dL (32.0-36.0) Red Cell Distribution Width 12.6 % (11.8-14.3) Platelet Count 115 10^3/uL (140-450) Mean Platelet Volume 9.4 fL (6.9-10.8) Neutrophils (%) (Auto) 40.0 % (37.0-80.0) Lymphocytes (%) (Auto) 48.3 % (10.0-50.0) Monocytes (%) (Auto) 8.2 % (0.0-12.0) Eosinophils (%) (Auto) 2.1 % (0.0-7.0) Basophils (%) (Auto) 1.4 % (0.0-2.0) Neutrophils # (Auto) 1.8 10 ^3/uL (1.6-8.6) Lymphocytes # (Auto) 2.1 10 ^3/uL (0.4-5.4) Monocytes # (Auto) 0.4 10 ^3/uL (0-1.3) Eosinophils # (Auto) 0.1 10 ^3/uL (0-0.8) Basophils # (Auto) 0.1 10 ^3/uL (0-0.2) Nucleated Red Blood Cells 0.2 % Sodium Level 139 mmol/L (136-145) Potassium Level 4.1 mmol/L (3.5-5.1) Chloride Level 107 mmol/L (98-107) Carbon Dioxide Level 25 mmol/L (20-31) Anion Gap 7 (5-15) Blood Urea Nitrogen 17 mg/dL (9-23) Creatinine 0.87 mg/dL (0.700-1.30) Glomerular Filtration Rate Calc 96 mL/min (>90) BUN/Creatinine Ratio 19.5 (10.0-20.0) Serum Glucose 232 mg/dL (74-106) Calcium Level 9.4 mg/dL (8.7-10.4) Total Bilirubin 0.4 mg/dL (0.2-1.0) Aspartate Amino Transferase (AST) 18 U/L (13-40) Alanine Aminotransferase (ALT) 28 U/L (7-40) Alkaline Phosphatase 78 U/L (46-116) Total Protein 6.5 g/dL (5.7-8.2) Albumin 4.2 g/dL (3.2-4.8) Lactic Acid Level 1.2 mmol/L (0.4-2.0) Urine Color Yellow (Yellow) Urine Clarity Clear (Clear) Urine pH 5.5 (5.0-9.0) Urine Specific [place] 1.030 (1.001-1.035) Urine Protein Negative (Negative) Urine Ketones Negative (Negative) Urine Blood Negative /uL (Negative) Urine Nitrite Negative (Negative) Urine Bilirubin Negative (Negative) Urine Urobilinogen Normal mg/dL (Negative) Urine Leukocyte Esterase Negative /uL (Negative) Urine RBC <1 /hpf (0 - 3) Urine Microscopic WBC /HPF (0-3) Urine Squamous Epithelial Cells Few /hpf (<5) Urine Bacteria None seen /hpf (None Seen) Urine Yeast (Budding) Occasional /hpf (None Urine Glucose 4+ mg/dL (Normal) Urine Opiates Screen Neg (NEGATIVE) Urine Fentanyl Screen Neg (NEGATIVE) Urine Barbiturates Screen Neg (NEGATIVE) Urine Phencyclidine Screen Neg (NEGATIVE) Urine Amphetamines Screen Neg (NEGATIVE) Urine Benzodiazepines Screen Neg (NEGATIVE) Urine Cocaine Screen Neg (NEGATIVE) Urine Cannabinoids Screen Neg (NEGATIVE) Test 07/28/24 23:25 07/28/24 23:24 07/28/24 22:03 07/28/24 14:11 Influenza Type A Antigen Negative (Negative) Influenza Type B Antigen Negative (Negative) SARS-CoV-2 Antigen (Rapid) Negative (NEGATIVE) Prothrombin Time 11.0 sec (9.3-11.8) Prothrombin Time INR 1.04 (0.9-1.15) Activated Partial Thromboplast Time 25.7 SEC (24.5-34.5) D-Dimer, Quantitative 0.58 mg/L FEU (0.0-0.49) Hemoglobin A1c 10.3 % A1C (<5.7) Magnesium Level 2.0 mg/dL (1.6-2.6) B-Type Natriuretic Peptide 19.50 pg/mL (0-100) Triglycerides Level 165 mg/dL (< 150) Cholesterol Level 146 mg/dL (< 200) LDL Cholesterol 81 mg/dL (< 100) HDL Cholesterol 42 mg/dL (40-59) Thyroid Stimulating Hormone (TSH) 1.48 uIU/mL (0.55-4.78) Free Thyroxine (T4) Calculated 1.16 ng/dL (0.89-1.76) Total Triiodothyronine (TT3) 0.93 ng/mL (0.60-1.81) Plasma/Serum Blood Alcohol < 3.0 mg/dL (<10) Troponin I High Sensitivity 6 ng/L (</=54) Other Laboratory Tests 07/29/24 04:41 Brief Hx & Hospital Course: History of Present Illness Ravinder Portillo is a 63-year-old male with a PMH of HCV, liver cancer s/p transplant, type 2 DM, HLD, HTN, hypothyroidism presented to the ED with the chief complaints of right-sided numbness since Friday. Patient reported on Friday evening after work patient started having right-sided numbness like pins and needles sensation in right side of his face, upper and lower extremities which is mild initially but worsened as this progresses and affecting no hold right hand and right side of body. Patient also reported he has been having fatigue for past 2 weeks, intermittent shortness of breath and lightheadedness with light activity and admitted stress at work but denies weakness. On my assessment patient denies headache, chest pain, diarrhea, fall, head trauma, nausea, vomiting, abdominal pain, recent sick contacts and other associated symptoms. Course for hospitalization: Neurology consultation was obtained. Patient's MRI of the brain which revealed acute CVA. Cardiology consultation was obtained. Patient underwent carotid angiogram today without any flow-limiting restrictions noted. Patient has been cleared for discharge. Patient will be placed on Plavix 75 mg p.o. daily times 21 days. He will also be placed on aspirin 81 mg p.o. daily. Patient was instructed to continue all previous home medications and follow up with Dr. Orellana in 1-2 weeks. Physical examination General: Alert and Oriented x3. No acute distress. Well-nourished. Eyes: EOMI. Anicteric. HENT: Moist mucous membranes. Lungs: Clear to auscultation bilaterally. No accessory muscle use. Cardiovascular: Regular rate and rhythm. No murmur. No JVD. Abdomen: Soft, non-tender and non-distended. No palpable masses. Extremities: No edema. Non-tender. Skin: No rashes or lesions. Warm. Neurologic: No focal neurological deficits. CN II-XII grossly intact, but not individually tested. Psychiatric: Cooperative. Appropriate mood and affect. Total time spent with patient discussing and formulating plan of care: 35 minutes. This medical document was created using an electronic medical record system with [employer] dictation system. Although this document has been carefully reviewed, there may still be some phonetic and typographical errors. These areas are purely typographical due to imperfections of the software programs, and do not reflect any compromise in the patient's medical care. Consults/Reason for consult Cardiology: Carotid stenosis Neurology: Acute CVA Operations or Procedures 07/30/2024: Carotid angiogram Condition at Discharge: Guarded Final Diagnosis/Problems List Acute CVA Secondary diagnosis: -history of liver cancer with liver transplant -obesity -primary hypertension -diabetes mellitus with poor control. Noted hemoglobin A1c of 10.3. Discharge Disposition: Home Discharge Instruct/Medications Diet: Consistent carbohydrate, Cardiac 2g Na,low cholest Activity: No Restrictions, As Tolerated Follow Up/Referral: Follow up with Dr. ORELLANA in 1-2 weeks Medications: Plavix 75 mg p.o. daily times 21 days Aspirin 81 mg p.o. daily Follow all previous home medication 36 Discharge Statement: "Patient was advised to return to the ER or call 911 if any headaches, dizziness, shortness of breath, chest pain, abdominal pain, bleeding, fevers, or worsening of medical condition. Patient was counseled about treatment plan, medications, possible side effects, patientverbalized understanding. All questions were answered to the best of my ability. This discharge took greater then 30 minutes in planning, reviewing documentation, counseling the patient, and discussing with other team members." ASSESSMENT ASSESSMENT Assessment Acute CVA Date of Service: Jul 30, 2024 Billing Provider: FEDE DUONG NP Common Visit Codes: [id number] DISCH DAY >30min FEDE DUONG NP Jul 30, 2024 17:03
[2024-07-30] MEDS ORDERED: ATORVASTATIN 20 MG TAB PO SCH (22:00)
== END 2024-07-30 18:30 | disposition home or self-care (01) | DRG 65 ==
LOC: ER 13:31 → EDBD 13:31 → OVERFLOW 21:49 → EAST 07-29 15:46
PROVIDERS: ADMIT Nurse Practitioner Acute Care; ATTEND Nurse Practitioner Acute Care
PROC: B3111ZZ Fluoroscopy of Right Brachiocephalic-Subclavian Artery using Low Osmolar Contrast (ICD-10-PCS; principal; 2024-07-30)
PROC: B3181ZZ Fluoroscopy of Bilateral Internal Carotid Arteries using Low Osmolar Contrast (ICD-10-PCS; 2024-07-30)
PROC: B31C1ZZ Fluoroscopy of Bilateral External Carotid Arteries using Low Osmolar Contrast (ICD-10-PCS; 2024-07-30)
PROC: B41G1ZZ Fluoroscopy of Left Lower Extremity Arteries using Low Osmolar Contrast (ICD-10-PCS; 2024-07-30)
PROC: B41F1ZZ Fluoroscopy of Right Lower Extremity Arteries using Low Osmolar Contrast (ICD-10-PCS; 2024-07-30)
DX: I63.9 Cerebral infarction, unspecified (principal); Z94.4 Liver transplant status; D69.6 Thrombocytopenia, unspecified; E03.9 Hypothyroidism, unspecified; I10 Essential (primary) hypertension; E11.65 Type 2 diabetes mellitus with hyperglycemia; Z20.822 Contact with and (suspected) exposure to COVID-19; E78.5 Hyperlipidemia, unspecified; E66.9 Obesity, unspecified; I65.21 Occlusion and stenosis of right carotid artery; F17.200 Nicotine dependence, unspecified, uncomplicated; Z79.84 Long term (current) use of oral hypoglycemic drugs; Z79.899 Other long term (current) drug therapy; Z79.82 Long term (current) use of aspirin; Z85.05 Personal history of malignant neoplasm of liver; Z83.3 Family history of diabetes mellitus; Z68.37 Body mass index [BMI] 37.0-37.9, adult
CPT/HCPCS: 36223; 36224; 36415; 70450; 70496; 70498; 70551; 71045; 75736; 80048; 80053; 80061; 80307; 80320; 81001; 82962; 83036; 83605; 83735; 83880; 84439; 84443; 84480; 84484; 85025; 85379; 85610; 85730; 87426; 87804; 93005; 93306; 93886; 96360; 99152; G0378; J1815; J7507; Q9967

== ENCOUNTER → 2024-08-06 | Outpatient (CLI) | payer MEDICARE, BC ==
[~2024-08-06] MED LIST changes: +ASPI1TAB20 PO; +CLOP75TA28 PO; +ROSU10TA16 PO; +TACR1CAP4 PO; +TACR1GRA PO
== END | disposition home or self-care (01) ==
LOC: Rad HDHVI 15:53
PROVIDERS: ATTEND Internal Medicine Cardiovascular Disease
DX: I11.9 Hypertensive heart disease without heart failure (principal); R00.1 Bradycardia, unspecified; E78.5 Hyperlipidemia, unspecified
CPT/HCPCS: 93306

== ENCOUNTER → 2024-08-09 | Outpatient (CLI) | payer MEDICARE, BC ==
[2024-08-09 15:36] VITALS: BP_SYST 130; BP_SYST 137; BP_DIAS 71; BP_DIAS 76; PULSE 58; PULSE 59
== END | disposition home or self-care (01) ==
LOC: CHF HDHVI 14:01
PROVIDERS: ATTEND Internal Medicine Cardiovascular Disease
DX: I25.118 Atherosclerotic heart disease of native coronary artery with other forms of angina pectoris (principal); I50.43 Acute on chronic combined systolic (congestive) and diastolic (congestive) heart failure; R06.02 Shortness of breath; E11.9 Type 2 diabetes mellitus without complications; I63.9 Cerebral infarction, unspecified
CPT/HCPCS: G0166

== ENCOUNTER → 2024-08-23 | Outpatient (CLI) | payer MEDICARE, BC ==
[~2024-08-23] VITALS: Ht 175.3 cm; Wt 105.2 kg
[~2024-08-23] MED LIST changes: +ADENOSINE 88 MG in GIVE UN-DILUTED 0 ML IV ONE; +ADENOSINE 90 MG/30 ML INJ IV ONE
== END | disposition home or self-care (01) ==
LOC: Rad HDHVI 13:25
PROVIDERS: ATTEND Internal Medicine Cardiovascular Disease
DX: I44.0 Atrioventricular block, first degree (principal); I49.3 Ventricular premature depolarization; I12.9 Hypertensive chronic kidney disease with stage 1 through stage 4 chronic kidney disease, or unspecified chronic kidney disease; E11.22 Type 2 diabetes mellitus with diabetic chronic kidney disease; N18.9 Chronic kidney disease, unspecified; R42 Dizziness and giddiness; I82.409 Acute embolism and thrombosis of unspecified deep veins of unspecified lower extremity; Z94.4 Liver transplant status
CPT/HCPCS: 78452; 93005; A9500; J0153; 96374; 96375

== ENCOUNTER → 2024-09-08 | Outpatient (CLI) | payer MEDICARE, BC ==
[~2024-09-08] MED LIST changes: -ADENOSINE 88 MG in GIVE UN-DILUTED 0 ML IV ONE; -ADENOSINE 90 MG/30 ML INJ IV ONE
[2024-09-08 16:15] VITALS: BP_SYST 125; BP_SYST 129; BP_DIAS 74; BP_DIAS 82; PULSE 57; PULSE 59
== END | disposition home or self-care (01) ==
LOC: CHF HDHVI 14:55
PROVIDERS: ATTEND Internal Medicine Cardiovascular Disease
DX: I25.118 Atherosclerotic heart disease of native coronary artery with other forms of angina pectoris (principal); I50.43 Acute on chronic combined systolic (congestive) and diastolic (congestive) heart failure; R06.02 Shortness of breath; Z86.73 Personal history of transient ischemic attack (TIA), and cerebral infarction without residual deficits; Z86.39 Personal history of other endocrine, nutritional and metabolic disease
CPT/HCPCS: G0166

== ENCOUNTER 2025-03-09 12:45 | Outpatient (CLI) | payer MEDICARE, BC ==
[2025-03-09 12:55] VITALS: BP 123/77; PULSE 65; RESP 18; O2SAT 95
[2025-03-09] MEDS ORDERED: CARV12.544 PO (15:31)
[2025-03-09] MEDS ORDERED: LEVO50CA3 PO (15:31)
[2025-03-09] MEDS ORDERED: BENA40TA71 PO (15:31)
== END 2025-03-10 17:00 | disposition home or self-care (01) ==
LOC: CHF HDHVI 12:45
PROVIDERS: ATTEND Internal Medicine Cardiovascular Disease
DX: Z01.818 Encounter for other preprocedural examination (principal); R07.9 Chest pain, unspecified
CPT/HCPCS: 36415; 80048; 85025; 85610; 85730; 93005; G0463

== ENCOUNTER 2025-03-10 09:06 | Day surgery (SDC) | payer MEDICARE, BC ==
[2025-03-09 14:26] LABS: Hematocrit 42.0 % (41.0-53.0); Hemoglobin 14.3 g/dL (13.5-17.5); Mean Corpuscular Hemoglobin 31.8 pg (28.0-32.0); Mean Corpuscular Volume 93.3 fL (80.0-100.0); Nucleated Red Blood Cells % 0.0 %
[2025-03-09 14:45] LABS: Chloride 106 mmol/L (98-107); Potassium 4.2 mmol/L (3.5-5.1); Sodium 140 mmol/L (136-145)
[2025-03-09 14:46] LABS: INR 1.05 (0.9-1.15); Partial Thromboplastin Time 24.5 SEC (24.5-34.5); Prothrombin Time 11.1 sec (9.3-11.8)
[2025-03-09 14:46] LABS: Anion Gap 11 (5-15); Carbon Dioxide 23 mmol/L (20-31)
[2025-03-09 14:47] LABS: Calcium 9.2 mg/dL (8.7-10.4)
[2025-03-09 14:51] LABS: BUN/Creatinine Ratio 13.0 (10.0-20.0); Blood Urea Nitrogen 14 mg/dL (9-23)
[2025-03-09 15:19] LABS: Glucose 170 mg/dL (74-106)
[~2025-03-10] VITALS: Ht 175.3 cm; Wt 100.2 kg
[~2025-03-10 09:06] MED LIST changes: -ASPI1TAB20 PO; +BENA40TA71 PO; +CARV12.544 PO; -CARV6.2551 OR; -LEVO25TA6 OR; +LEVO50CA3 PO; -METF-370 OR; -OLME40TA9 OR; -TACR1CAP4 PO
[2025-03-10] MEDS ORDERED: IODIXANOL 320MG/ML 100ML BTL IV ONE (12:04)
[2025-03-10] MEDS ORDERED: HEPARIN SODIUM (PORCINE) 5000 UNITS/ML 1ML VIAL ONE (12:08)
[2025-03-10] MEDS ORDERED: fentaNYL CITRATE 100 MCG/2 ML VL ONE (12:08)
[2025-03-10] MEDS ORDERED: MIDAZOLAM HCL 2MG/2ML 2ml VIAL (1mg/ml) ONE (12:08)
[2025-03-10] MEDS ORDERED: ANGIOMAX 250 MG VIAL IV ONE (12:08)
[2025-03-10] MEDS ORDERED: SODIUM CHL 0.9% 50 ML ONE (12:09)
[2025-03-10] MEDS ORDERED: LIDOCAINE 2%HCL (LOCAL ANESTH.) INJ 20ML MDV ONE (12:09)
[2025-03-10] MEDS ORDERED: CLOPIDOGREL BISULFATE 75 MG TAB ONE (13:04)
[2025-03-10] MEDS ORDERED: NITROGLYCERIN 0.4MG/DOSE SPRAY 4.9GM ONE (13:04)
--- NOTE | 2025-03-10 13:33 | DVHDS ---
DATE OF DISCHARGE: 03/10/2025 HOSPITAL COURSE: The patient underwent successful angioplasty of OM1 with thrombectomy, angioplasty with FFR, OM2, and thrombectomy. An FFR of LAD was performed. He underwent successful stenting of OM2 at this time with less than 10% residual stenosis. Clinically, the patient is stable, may be discharged home. He is a liver transplant patient, he had a history of hepatoma. Stable at the time of discharge. DISPOSITION: Home. ACTIVITY: As instructed. DIET: Will be 2-gram sodium diet. Esteban Rehman MD SA/SUSAN TID: [id number] RECEIPT: [id number]
--- NOTE | 2025-03-10 13:42 | DVHOP ---
DATE OF SURGERY: 03/10/2025 PROCEDURES PERFORMED: * Selective left and right coronary angiography. * Ventriculogram. * Right iliac angiography. * Conscious sedation. * Angioplasty with stent placement of obtuse marginal 2 with thrombectomy of the ostium of the artery with a shockwave thrombectomy catheter followed by stent placement, a 3.0 x 12 mm [place] stent. * Angioplasty and thrombectomy of obtuse marginal 1 with a 3.0 x 13 mm shockwave thrombectomy catheter. There were no complications. The patient tolerated the procedure well. RESULTS: * Left main patent. Left anterior descending had mild intimal irregularity. FFR of the proximal LAD shows narrowing, measured 0.84. Not hemodynamically significant lesion. * Obtuse marginal 1 had no narrowing. Obtuse marginal 2, however, had a 99% ostial stenosis, but when we did the angioplasty, part of the plaque shifted into the OM1 and therefore we had to thrombectomize the lesion without stent placement. * RCA, mild intimal irregularity without any flow restrictive lesion, is a codominant system. * Left ventricular function shows mild global hypokinesis with an estimated EF of around 45% with an LVEDP of 12 mmHg with no gradient across the aortic valve. CONCLUSION: Thus, the patient underwent successful angioplasty, thrombectomy of OM1, angioplasty, thrombectomy with FFR of OM2 with stent placement, FFR of ostial/proximal RCA. At this time, conservative medical management should be implemented. Dual antiplatelet therapy will be initiated. We will continue to follow the patient. Esteban Rehman MD SA/ANAHY TID: [id number] RECEIPT: [id number]
[2025-03-10] MEDS: ONDANSETRON HCL 4 MG/2 ML VIAL IV ONE (13:45)
[2025-03-10] MEDS ORDERED: ATROPINE SULF 1 MG/10ml SYR ONE (13:48)
[2025-03-10] MEDS: ONDANSETRON HCL 4 MG/2 ML VIAL ONE (13:48)
--- NOTE | 2025-03-11 11:06 | DVHHP ---
ADMIT DATE: 03/10/2025 HISTORY OF PRESENT ILLNESS: The patient is 64 years old with a history of hypertension, hyperlipidemia, history of nephroma, status post liver transplant following hepatectomy. The patient clinically has been doing well at this time; however, now he is having classic symptoms of chest pain, pressure-like sensation, radiating to the jaw. Similar pain he has had in the past that resulted in him having an angioplasty with stent placement. PAST MEDICAL HISTORY: Pertinent medical history is also significant for obesity, metabolic syndrome and diabetes as well. REVIEW OF SYSTEMS: HEENT: The patient has no history of CVA. No seizure disorder. No history of any movement disorders. No visual disturbances. No hearing deficit. GASTROINTESTINAL: The patient has no GI symptoms such as dysphagia, diarrhea, constipation, irritable bowel syndrome or inflammatory bowel disease. Denies any liver disease. Denies any GI symptomatology. No bleeding diathesis such as hematemesis, hemoptysis, hematochezia or hematuria. No melena either. LUNG: No history of any recent pneumonia. CARDIOVASCULAR: No previous history of myocardial infarction. EXTREMITIES: Unremarkable. The patient denies any fever or chills. No recent travel outside the country. PHYSICAL EXAMINATION: VITAL SIGNS: Blood pressure is 122/84, pulse of 70, O2 saturation 98% on room air. HEENT: Pupils are reactive. Funduscopic exam shows no AV nicking. No exudates. No papilledema. Sclerae anicteric. Extraocular muscles are intact. Oral mucosa moist. Posterior pharynx with no exudates. PULMONARY: Clear to auscultation. No rhonchi, no wheezes, no egophony. CARDIOVASCULAR: Regular rate, without S3, without S4. PMI is not displaced. ABDOMEN: Soft, nontender. Normal bowel sounds. NEUROLOGIC: The patient is intact as well. EKG does not show any acute changes. ASSESSMENT AND PLAN: Thus, * The patient with a liver transplant at [facility] some 10 years ago. * History of hepatic CA. * History of coronary artery disease, status post angioplasty with stent placement. * History of hypertension. * History of hyperlipidemia. The patient is immunosuppressed because of suppression therapy, now with classic symptoms of angina, chest pain radiating to the jaw. The patient is now to undergo coronary angiography with possibility of angioplasty. Further recommendations after the procedure. Risks and benefits were explained to the patient. Esteban Rehman MD SA/SUSAN/WING TID: [id number] RECEIPT: [id number]
== END 2025-03-10 15:50 | disposition home or self-care (01) ==
LOC: CATH 09:06
PROVIDERS: ATTEND Internal Medicine Cardiovascular Disease
DX: I25.118 Atherosclerotic heart disease of native coronary artery with other forms of angina pectoris (principal); I10 Essential (primary) hypertension; E11.9 Type 2 diabetes mellitus without complications; E78.5 Hyperlipidemia, unspecified; E66.9 Obesity, unspecified; Z68.32 Body mass index [BMI] 32.0-32.9, adult; Z79.890 Hormone replacement therapy; Z79.899 Other long term (current) drug therapy; Z86.718 Personal history of other venous thrombosis and embolism; Z94.4 Liver transplant status; Z85.528 Personal history of other malignant neoplasm of kidney; Z85.05 Personal history of malignant neoplasm of liver; Z95.5 Presence of coronary angioplasty implant and graft; Z87.891 Personal history of nicotine dependence; Z88.5 Allergy status to narcotic agent; Z88.8 Allergy status to other drugs, medicaments and biological substances; Z83.3 Family history of diabetes mellitus
CPT/HCPCS: 0523T; 36415; 80048; 85025; 85610; 85730; 92972; 92973; 93458; C1760; C1761; C1874; C1887; C1894; C9600; J0583; J1644; J2250; J2405; J3010; Q9967; 99152

== ENCOUNTER 2025-05-11 15:47 | Outpatient (CLI) | payer MEDICARE, BC | END 2025-05-11 17:00 | disposition home or self-care (01) | LOC: Rad HDHVI 15:47 | PROVIDERS: ATTEND Internal Medicine Cardiovascular Disease | DX: I08.8 Other rheumatic multiple valve diseases (principal); I49.3 Ventricular premature depolarization; I11.9 Hypertensive heart disease without heart failure | CPT/HCPCS: 93306 ==